=== PATIENT | male | born 1960 | race Caucasian/White ===

== ENCOUNTER 2018-04-29 07:10 | Day surgery (SDC) | payer OTHER ==
--- NOTE | 2018-04-25 12:20 | RAD REPORT ---
EXAM DESCRIPTION: RAD - Chest Pa And Lat (2 Views) - 04/25/2018 12:12 pm CLINICAL HISTORY: Preop chest, pending angiogram/ catheterization procedure. COMPARISON: July 2010 TECHNIQUE: PA and lateral views of the chest were obtained. FINDINGS: The lungs are underinflated. Lateral view shows posterior costophrenic angle blunting that was not present in 2011. Heart size is mildly enlarged. Upper lobe vasculature within normal limits. In the mid and lower lung morejon interstitial and patchy alveolar opacification is present. Patient apparently has no acute respiratory symptoms. Chest film findings have the appearance of a bi lateral pneumonia or early failure/ volume overload. No pneumothorax. No acute bony finding noted. N o aortic abnormality. Lung parenchymal findings do not have an appearance typical for malignant mass . IMPRESSION: Mid and lower lung morejon show interstitial and alveolar opacification not seen on 2010 comparison. Small bilateral pleural effusions are evident. Findings suggest CHF/volume overload or possibly pneumonia. Patient reports no acute respiratory symp toms.
[2018-04-25 12:29] LABS: Absolute Lymphocytes (CBC) 2.2 K/uL (0.7-4.9); Absolute Monocytes 0.8 K/uL (0.1-1.3); Absolute Neutrophil 9.5 K/uL (1.8-8.0); Basophils % 0.5 % (0-1.3); Eosinophils % 1.3 % (0-4.4); Hematocrit 38.7 % (39.6-49.0); Lymphocytes % 17.5 % (15.3-44.8); MCH 31.7 pg (27.0-35.0); MCV 91.1 fL (80-100); MPV 9.5 fL (7.6-11.3); Monocytes % 6.4 % (3.3-12.3); RBC Red Blood Cell Count 4.25 M/uL (4.33-5.43)
[2018-04-25 12:43] LABS: BUN Blood Urea Nitrogen 14 mg/dL (7-18); Bicarbonate 28 mmol/L (21-32); Glucose Level 109 mg/dL (74-106); Potassium 3.6 mmol/L (3.5-5.1); Sodium Level 139 mmol/L (136-145)
--- NOTE | 2018-04-26 12:29 | EKG ---
Test Date: 2018-04-25 Test Time: 12:03:02 Sander And Polisher: KAYLYN MEASUREMENT RESULTS: Intervals: Rate: 93 CA: QRSD: 80 QT: 368 QTc: 457 [place]: P: CA: QRS: 36 T: -11 INTERPRETIVE STATEMENTS: Atrial fibrillation with premature ventricular or aberrantly conducted complexes Abnormal ECG Compared to ECG 07/06/2010 12:39:41 Ventricular premature complex(es) now present Sinus rhythm no longer present Myocardial infarct finding no longer present Electronically Signed On 04-26-18 12:25:57 CDT by John Diaz
[2018-04-29] MEDS ORDERED: NA CHLORIDE 0.9% 500 ML ONE (07:56)
[2018-04-29] MEDS ORDERED: MIDAZOLAM HCL 2 MG/2 ML INJ ONE ×2 (09:22→09:40)
[2018-04-29] MEDS ORDERED: FENTANYL CITR 100 MCG/2 ML ONE (09:22)
[2018-04-29] MEDS ORDERED: HEPA 1000U/500MLS 1,000 UNIT/500 ML BAG IV ONE (09:22)
--- NOTE | 2018-04-29 20:59 | OP ---
Surgeon: John Diaz MD Web Services Architect: Karime Fuentes. He will be given a CD of the film for today. I will make an appointment for him to see in [place] in the near future. Admitted to my service as an outpatient for a selective bilateral carotid angiogram. He was brought into the photographic laboratory supervisor, prepped and draped in the routine sterile fashion. Procedure: Bilateral selective carotid angiogram. Indication: Cerebrovascular disease and abnormal carotid Doppler. Procedure In Detail: The patient had been cleared medically to do the procedure. He had a negative stress test. He was brought into the photographic laboratory supervisor, prepped and draped in the routine sterile fashion giv en 2 mg of Versed for IV sedation. Right common femoral artery access with a 6-Urdu sheath. Angio -Seal was used to close the case. A JR4 catheter diagnostic Sanjiv was used to do the carotid angio gram selectively. The right common carotid angiogram showed 70% of right ICA stenosis, 10 0% of right ECA stenosis, normal left ICA and ECA. A 6-Urdu catheters were used. There were no co mplications. Blood Loss: 5 cc. Postoperative Diagnosis: Plan: Plan is for right CEA. ANGELA/WALLY Voice ID: [id number] Report ID: [id number]
== END 2018-04-29 12:20 | disposition home health service (06) ==
LOC: CCL 07:10
PROC: B305ZZZ Plain Radiography of Bilateral Common Carotid Arteries (ICD-10-PCS; principal; 2018-04-29)
DX: I65.21 Occlusion and stenosis of right carotid artery (principal); I10 Essential (primary) hypertension; I48.91 Unspecified atrial fibrillation; E78.6 Lipoprotein deficiency; E11.9 Type 2 diabetes mellitus without complications; Z87.891 Personal history of nicotine dependence; Z82.49 Family history of ischemic heart disease and other diseases of the circulatory system
CPT/HCPCS: 36222; 36415; 71046; 80048; 82962; 85025; 85730; 93005; C1760; C1893; J2250; J3010

== ENCOUNTER 2018-08-01 10:00 | Day surgery (SDC) | payer OTHER ==
--- OUTSIDE RECORDS SUMMARY | 2018-08-01 10:34 | XMS REPORT | Clinical Summary ---
:1960 Author Organization [facility] Address [address] [place] [address] Care Team Providers Name Role Phone Darren Freire Unavailable Allergies No Known Allergies Medications Medication Sig Dispensed Refills Start Date End Date Status metFORMIN Take 750 mg by 0 Active (GLUCOPHAGE-XR) 750 mouth daily. MG 24 hr tablet atorvastatin Take 10 mg by 0 Active (LIPITOR) 10 MG mouth daily. tablet glimepiride Take 2 mg by 0 Active (AMARYL) 2 MG mouth daily. tablet multivit with Take by mouth 0 Active minerals/lutein daily . (MULTIVITAMIN 50 PLUS ORAL) nisoldipine (SULAR) Take 34 mg by 0 Active 34 MG 24 hr tablet mouth daily. metoprolol Take 100 mg by 6 04/18/2018 Active (TOPROL-XL) 100 MG mouth daily. 24 hr tablet cholecalciferol, Take by mouth 0 Active vitamin D3, 2,000 daily. unit Cap clopidogrel Take 1 tablet 30 tablet 0 05/15/2018 Active (PLAVIX) 75 mg (75 mg total) tablet by mouth daily. rivaroxaban Take 20 mg by 0 05/29/2018 Discontinued (XARELTO) 20 mg Tab mouth every tablet morning . Active Problems Problem Noted Date Carotid stenosis 05/12/2018 S/P carotid endarterectomy 05/12/2018 Anemia 05/12/2018 Acute postoperative pain 05/12/2018 Essential hypertension 05/12/2018 SIRS (systemic inflammatory response syndrome) 05/12/2018 Stroke Carotid artery occlusion Atrial fibrillation Encounters Date Type Specialty Care Team Description 05/29/2018 Office Visit Cardiology Dave Boyer [facility] state Bethanie MD (Primary Dx) 05/12/2018 Surgery Rosalind, Dave ENDARTERECTOMY,CAROTID MD Bethanie 05/12/2018 Anesthesia Event Gregor Robles MD 05/12/2018 - Hospital Encounter Cardiology Dave Boyer Atrial fibrillation, unspecified type (HCC) (Primary Dx); 05/14/2018 MD Bethanie Acute postoperative pain; Haylie Conway Chronic atrial fibrillation (HCC); MD Barbara Occlusion of right carotid artery; Essential hypertension; S/P carotid endarterectomy; SIRS (systemic inflammatory response syndrome) (HCC); History of stroke 05/05/2018 Hospital Encounter Dave Boyer MD 05/05/2018 Office Visit Cardiology Dave Boyer Stenosis of right carotid artery (Primary Dx); MD Bethanie Cerebrovascular accident (CVA), unspecified mechanism (HCC); Occlusion of right carotid artery; Atrial fibrillation, unspecified type (HCC) after 07/31/2017 Immunizations Name Dates Previously Given Next Due Influenza TIV (IM) 05/05/2018 Social History Tobacco Use Types Packs/Day Years Used Date Former Smoker 33 Quit: 2009 Smokeless Tobacco: Former User Chew Quit: 2009 Alcohol Use Drinks/Week oz/Week Comments Yes 4 Glasses of wine 2.4 4 Cans everyday Alcohol Habits Answer Date Recorded How often do you have a drink containing 4 or more times a week 05/05/2018 alcohol? How many drinks containing alcohol do you have Not asked on a typical day when you are drinking? How often do you have six or more drinks on one Not asked occasion? Sex Assigned at Date Recorded Not on file Job Start Date Occupation Industry Not on file Not on file Not on file Travel History Travel Start Travel End No recent travel history available. Last Filed Vital Signs Vital Sign Reading Time Taken Blood Pressure 152/69 05/29/2018 9:58 AM MUD CLEANER OPERATOR Pulse 64 05/29/2018 9:58 AM MUD CLEANER OPERATOR Temperature 36.3 C (97.4 F) 05/29/2018 9:58 AM MUD CLEANER OPERATOR Respiratory Rate 16 05/29/2018 9:58 AM MUD CLEANER OPERATOR Oxygen Saturation 96% 05/29/2018 9:58 AM MUD CLEANER OPERATOR Inhaled Oxygen Concentration - - Weight 102.1 kg (225 lb) 05/29/2018 9:58 AM MUD CLEANER OPERATOR Height 175.3 cm (5' 9") 05/29/2018 9:58 AM MUD CLEANER OPERATOR Body Mass Index 33.23 05/29/2018 9:58 AM MUD CLEANER OPERATOR Plan of Treatment Not on file Procedures Procedure Name Priority Date/Time Associated Comments Diagnosis RHYTHM STRIP - SCAN 05/15/2018 12:41 PM MUD CLEANER OPERATOR POCT-GLUCOSE METER Routine 05/14/2018 12:19 Results for this PM MUD CLEANER OPERATOR procedure are in the results section. POCT-GLUCOSE METER Routine 05/14/2018 8:19 Results for this AM MUD CLEANER OPERATOR procedure are in the results section. MAGNESIUM Routine 05/14/2018 4:02 Results for this AM MUD CLEANER OPERATOR procedure are in the results section. PT/APTT Routine 05/14/2018 4:02 Results for this AM MUD CLEANER OPERATOR procedure are in the results section. BASIC METABOLIC PANEL Routine 05/14/2018 4:02 Results for this (7) AM MUD CLEANER OPERATOR procedure are in the results section. CBC (HEMOGRAM ONLY) Routine 05/14/2018 4:02 Results for this AM MUD CLEANER OPERATOR procedure are in the results section. HEMOGLOBIN A1C Routine 05/13/2018 3:18 Results for this AM MUD CLEANER OPERATOR procedure are in the results section. MAGNESIUM Routine 05/13/2018 3:18 Results for this AM MUD CLEANER OPERATOR procedure are in the results section. PT/APTT Routine 05/13/2018 3:18 Results for this AM MUD CLEANER OPERATOR procedure are in the results section. BASIC METABOLIC PANEL Routine 05/13/2018 3:18 Results for this (7) AM MUD CLEANER OPERATOR procedure are in the results section. CBC (HEMOGRAM ONLY) Routine 05/13/2018 3:18 Results for this AM MUD CLEANER OPERATOR procedure are in the results section. POCT-GLUCOSE METER Routine 05/12/2018 3:50 Results for this PM MUD CLEANER OPERATOR procedure are in the results section. CBC W/PLT COUNT & Routine 05/12/2018 10:42 Results for this AUTO DIFFERENTIAL AM MUD CLEANER OPERATOR procedure are in the results section. MAGNESIUM Routine 05/12/2018 10:42 Results for this AM MUD CLEANER OPERATOR procedure are in the results section. BASIC METABOLIC PANEL Routine 05/12/2018 10:42 Results for this (7) AM MUD CLEANER OPERATOR procedure are in the results section. CBC W/PLT COUNT & Routine 05/12/2018 10:42 Results for this AUTO DIFFERENTIAL AM MUD CLEANER OPERATOR procedure are in the results section. BLOOD GAS, ARTERIAL STAT 05/12/2018 10:42 Results for this AM MUD CLEANER OPERATOR procedure are in the results section. CALCIUM, IONIZED Routine 05/12/2018 10:42 Results for this AM MUD CLEANER OPERATOR procedure are in the results section. TISSUE EXAM AP Routine 05/12/2018 9:25 Results for this AM MUD CLEANER OPERATOR procedure are in the results section. ENDARTERECTOMY,CAROTI 05/12/2018 8:00 Stenosis of right D AM MUD CLEANER OPERATOR carotid artery ECG 12-LEAD Routine 05/12/2018 7:25 Results for this AM MUD CLEANER OPERATOR procedure are in the results section. PLATELET AGGREGATION: AP Routine 05/12/2018 6:51 Results for this FUNCTION SCREEN AM MUD CLEANER OPERATOR procedure are in the results section. APTT Routine 05/12/2018 6:51 Results for this AM MUD CLEANER OPERATOR procedure are in the results section. PROTHROMBIN TIME/INR Routine 05/12/2018 6:51 Results for this AM MUD CLEANER OPERATOR procedure are in the results section. TRANSFUSION SERVICE 05/06/2018 6:02 REPORT - SCAN PM MUD CLEANER OPERATOR XR CHEST 2 VIEWS Routine 05/05/2018 1:50 Results for this PM MUD CLEANER OPERATOR procedure are in the results section. CBC W/PLT COUNT & Routine 05/05/2018 12:39 Results for this AUTO DIFFERENTIAL PM MUD CLEANER OPERATOR procedure are in the results section. TYPE AND SCREEN, Routine 05/05/2018 12:39 Results for this AUTOMATED PM MUD CLEANER OPERATOR procedure are in the results section. BASIC METABOLIC PANEL Routine 05/05/2018 12:39 Results for this (7) PM MUD CLEANER OPERATOR procedure are in the results section. CBC W/PLT COUNT & Routine 05/05/2018 12:39 Results for this AUTO DIFFERENTIAL PM MUD CLEANER OPERATOR procedure are in the results section. after 07/31/2017 Results RHYTHM STRIP - SCAN (05/15/2018 12:41 PM MUD CLEANER OPERATOR) Narrative Performed At POC-Glucose meter (05/14/2018 12:19 PM MUD CLEANER OPERATOR)Only the most recent of3 resultswithin the time period is included. POC-Glucose Meter 105Comment: TESTED AT 70 - 110 mg/dL [facility] [address] [facility] [address] Specimen Blood Performing Organization Address City/State/Zipcode Phone Number [address] [address] CENTER PT/aPTT (05/14/2018 4:02 AM MUD CLEANER OPERATOR)Only the most recent of2 resultswithin the time period is included. Protime 14.6 11.7 - 14.7 seconds [facility] INR 1.1 <=5.9 [facility] PTT 31.0 22.5 - 36.0 seconds [facility] Specimen Blood - Arm, Left Narrative Performed At RECOMMENDED COUMADIN/WARFARIN INR THERAPY [facility] RANGES STANDARD DOSE: 2.0 - 3.0 Includes: PROPHYLAXIS for venous thrombosis, systemic embolization; TREATMENT for venous thrombosis and/or pulmonary embolus. HIGH RISK: Target INR is 2.5-3.5 for patients with mechanical heart valves. Performing Organization Address [facility] Phone Number [facility] [address] [place] [address] CENTER CBC (Hemogram only) (05/14/2018 4:02 AM MUD CLEANER OPERATOR)Only the most recent of2 resultswithin the time period is included. WBC 13.7 (H) 3.5 - 10.5 K/L [facility] RBC 3.85 (L) 4.63 - 6.08 M/L [facility] Hemoglobin 11.4 (L) 13.7 - 17.5 GM/DL [facility] Hematocrit 36.1 (L) 40.1 - 51.0 % [facility] MCV 93.8 (H) 79.0 - 92.2 fL [facility] MCH 29.6 25.7 - 32.2 pg [facility] MCHC 31.6 (L) 32.3 - 36.5 GM/DL [facility] RDW 13.1 11.6 - 14.4 % [facility] Platelets 308 150 - 450 K/CU MM [facility] MPV 10.8 9.4 - 12.4 fL [facility] nRBC 0 0 - 0 /100 WBC [facility] Specimen Blood - Arm, Left Performing Organization Address City/State/Zipcode Phone Number [address] [address] [phone] CENTER Magnesium (05/14/2018 4:02 AM MUD CLEANER OPERATOR)Only the most recent of3 resultswithin the time period is included. Magnesium 2.0 1.6 - 2.6 mg/dL [facility] Specimen Blood - Arm, Left Performing Organization Address City/[facility] Phone Number [address] [address] [place] Basic Metabolic Panel (05/14/2018 4:02 AM MUD CLEANER OPERATOR)Only the most recent of4 resultswithin the time period is included. Sodium 140 136 - 145 meq/L [facility] Potassium 4.1 3.5 - 5.1 meq/L [facility] Chloride 106 98 - 107 meq/L [facility] CO2 29 22 - 29 meq/L [facility] BUN 14 7 - 21 mg/dL [facility] Creatinine 0.82 0.57 - 1.25 mg/dL [facility] Glucose 114 (H) 70 - 105 mg/dL [facility] Calcium 9.1 8.4 - 10.2 mg/dL [facility] EGFR 97Comment: ESTIMATED GFR IS mL/min/1.73 sq m [facility] NOT ACCURATE CREATININE [facility] CENTER CLEARANCE IN PREDICTING GLOMERULAR FILTRATION RATE. ESTIMATED GFR IS NOT APPLICABLE FOR DIALYSIS PATIENTS. Specimen Blood - Arm, Left Performing Organization Address [facility] Phone Number [address] [address] [place] Hemoglobin A1c (05/13/2018 3:18 AM MUD CLEANER OPERATOR) Hemoglobin A1C 5.6 4.3 - 6.1 % [facility] Specimen Blood Performing Organization Address City/State/Zipcode Phone Number [address] [place] [address] [phone] [place] Calcium, Ionized (05/12/2018 10:42 AM MUD CLEANER OPERATOR) Calcium, Ion 1.12 1.12 - 1.27 mmol/L [facility] pH, Blood 7.41 [facility] Specimen Blood Performing Organization Address City/State/Zipcode Phone Number [address] [address] [place] CBC with platelet count + automated diff (05/12/2018 10:42 AM MUD CLEANER OPERATOR)Only the most recent of2 resultswithin the time period is included. WBC 13.0 (H) 3.5 - 10.5 K/L [facility] RBC 4.06 (L) 4.63 - 6.08 M/L [facility] Hemoglobin 12.2 (L) 13.7 - 17.5 GM/DL [facility] Hematocrit 37.5 (L) 40.1 - 51.0 % [facility] MCV 92.4 (H) 79.0 - 92.2 fL [facility] MCH 30.0 25.7 - 32.2 pg [facility] MCHC 32.5 32.3 - 36.5 GM/DL [facility] RDW 12.7 11.6 - 14.4 % [facility] Platelets 389 150 - 450 K/CU MM [facility] MPV 10.4 9.4 - 12.4 fL [facility] nRBC 0 0 - 0 /100 WBC [facility] % Neutros 76 % [facility] % Lymphs 17 % [facility] % Monos 4 % [facility] % Eos 1 % [facility] % Baso 1 % [facility] # Neutros 9.86 (H) 1.78 - 5.38 K/L [facility] # Lymphs 2.14 1.32 - 3.57 K/L [facility] # Monos 0.55 0.30 - 0.82 K/L [facility] # Eos 0.13 0.04 - 0.54 K/L [facility] # Baso 0.09 (H) 0.01 - 0.08 K/L [facility] Immature Granulocytes-Relative 1 0 - 1 % [facility] Specimen Blood Performing Organization Address City/[facility]/Zipcode Phone Number [address] [address] [place] Blood gas, arterial (05/12/2018 10:42 AM MUD CLEANER OPERATOR) pH, Arterial 7.42 7.35 - 7.45 [facility] pCO2, Arterial 43 35 - 45 mmHg [facility] pO2, Arterial 132 (H) 80 - 90 mmHg [facility] O2 Sat, Arterial 98.7 (H) 96.0 - 97.0 % [facility] HCO3, Arterial 27 21 - 29 mmol/L [facility] Base Excess, Arterial 2.4 -2.0 - 3.0 mmol/L [facility] Patient Temperature 36.4 C [facility] FIO2 36.0 % [facility] Specimen Blood, Arterial Narrative Performed At Only if arterial line in place and/or patient [facility] on ventilator Performing Organization Address City/State/Zipcode Phone Number [address] [address] [place] Tissue Exam (05/12/2018 9:25 AM MUD CLEANER OPERATOR) Case Report Surgical Pathology Report Case: [id number] [facility] Authorizing Provider:Dave Boyer, Collected: 05/12/2018 0925 [facility] Ordering Location: [facility] Received: 05/12/2018 0976 [facility] Pathologist: Jhon Paige MD Specimen:Plaque, right carotid plaque DIAGNOSIS ARTERY, RIGHT CAROTID, ENDARTERECTOMY: [facility] CALCIFIC ATHEROSCLEROTIC PLAQUE WITH FOCAL EROSION AND NON-OCCLUSIVE FIBRIN THROMBOSIS [facility] Signing Pathologist Direct Phone Line: [phone] CPT Code(s) 95840; 55794 [facility] CLINICAL HISTORY Carotid stenosis [facility] SPECIMEN SOURCE Right carotid plaque [facility] GROSS DESCRIPTION The specimen is received in a [facility] fluidless container labeled [facility] with patient information and labeled "right carotid plaque" and consists of a calcified tubular shaped segment of tissue measuring 4 cm in length x 1 cm in diameter. Stamp Redemption Clerk sections are submitted A1 for decalcification. CG/pl MICROSCOPIC DESCRIPTION Performed [facility] Specimen Tissue - Plaque Performing Organization Address City/[facility]/Zipcode Phone Number [place] [phone] [place] [address] [place] Electrocardiogram, 12-lead (05/12/2018 7:25 AM MUD CLEANER OPERATOR) Narrative Performed At Ventricular Rate 97 BPM GE MUSE Atrial Rate 227 BPM QRS Duration 80 ms Q-T Interval 336 ms QTC Calculation(Bazett) 426 ms R [place] 27 degrees T [place] -6 degrees Atrial fibrillation Abnormal ECG No previous ECGs available Confirmed by MD Winter Mahboob ([id number]) on 05/12/2018 1:54:42 PM Procedure Note Interface, External Ris In - 05/12/2018 1:54 PM MUD CLEANER OPERATOR Ventricular Rate 97 BPM Atrial Rate 227 BPM QRS Duration 80 ms Q-T Interval 336 ms QTC Calculation(Bazett) 426 ms R [place] 27 degrees T [place] -6 degrees Atrial fibrillation Abnormal ECG No previous ECGs available Confirmed by MD Winter Mahboob ([id number]) on 05/12/2018 1:54:42 PM Performing Organization Address City/State/[facility] Phone Number [facility] Platelet Aggregation: Function Screen (05/12/2018 6:51 AM MUD CLEANER OPERATOR) Weak ADP 73 60 - 91 % [facility] Plt. Function Screen 60-100% indicates [facility] Interpretation normal platelet [facility] function Pathologist: Blanca Trevizo MD [facility] (electronic [facility] signature) Platelets 378 150 - 450 K/CU MM [facility] Specimen Blood Narrative Performed At Platelet Function Screen results may be [facility] falsely low with platelet counts <100,000/cu mm. Performing Organization Address [facility] Phone Number [address] [address] [phone] [place] aPTT (05/12/2018 6:51 AM MUD CLEANER OPERATOR) PTT 37.2 (H) 22.5 - 36.0 seconds [facility] Specimen Blood Performing Organization Address [facility] Phone Number [address] [address] [place] Prothrombin time/INR (05/12/2018 6:51 AM MUD CLEANER OPERATOR) Protime 14.7 11.7 - 14.7 seconds [facility] INR 1.1 <=5.9 [facility] Specimen Blood Narrative Performed At RECOMMENDED COUMADIN/WARFARIN INR THERAPY [facility] RANGES STANDARD DOSE: 2.0 - 3.0 Includes: PROPHYLAXIS for venous thrombosis, systemic embolization; TREATMENT for venous thrombosis and/or pulmonary embolus. HIGH RISK: Target INR is 2.5-3.5 for patients with mechanical heart valves. Performing Organization Address [facility]/Zipcode Phone Number [address] [address] [phone] [place] TRANSFUSION SERVICE REPORT - SCAN (05/06/2018 6:02 PM MUD CLEANER OPERATOR) Narrative Performed At XR chest 2 views (05/05/2018 1:50 PM MUD CLEANER OPERATOR) Narrative Performed At FINAL REPORT GE RIS PA and lateral chest HISTORY: Carotid endarterectomy. COMPARISON: None IMPRESSION: Intact skull. Mild cardiomegaly. Faint perihilar opacities suggestive of mild edema. Trace effusions versus pleural thickening. No pneumothorax. Signed: John Russ MD Report Verified Date/Time:05/05/2018 14:39:12 Reading Location: [facility] Reading Room Procedure Note Interface, External Ris In - 05/05/2018 2:41 PM MUD CLEANER OPERATOR FINAL REPORT PA and lateral chest HISTORY: Carotid endarterectomy. COMPARISON: None IMPRESSION: Intact skull. Mild cardiomegaly. Faint perihilar opacities suggestive of mild edema. Trace effusions versus pleural thickening. No pneumothorax. Signed: John Russ MD Report Verified Date/Time: 05/05/2018 14:39:12 Reading Location: [facility] Reading Room Performing Organization Address City/[facility]/Zipcode Phone Number GE RIS Type and screen, automated (05/05/2018 12:39 PM MUD CLEANER OPERATOR) ABO/RH AUTOMATED (BEAKER) O POSITIVE [facility] Ab Scrn NEGATIVE [facility] Specimen Blood - Arm, Right Performing Organization Address [facility]/State/Zipcode Phone Number [facility] [address] [place] [address] after 07/31/2017 Insurance Payer Benefit Plan / Group Subscriber ID Type Phone Address [employer] - [employer] OPEN ACCESS HMO NAP xxxxxxxxxx HMO/POS Advance Directives For more information, please contact:[place] [address] [place] [place] [phone] Code Status Date Activated Date Inactivated Comments Full Code 05/12/2018 5:40 AM 05/12/2018 10:31 AM This code status was determined by: Patient Full Code 05/12/2018 5:40 AM 05/12/2018 5:40 AM This code status was determined by: Patient
--- OUTSIDE RECORDS SUMMARY | 2018-08-01 10:35 | XMS REPORT ---
:1960 Author Organization [facility] Address [address] [place] [address] Care Team Providers Name Role Phone DAVE OBYER Unavailable Unavailable Problems This patient has no known problems. Allergies, Adverse Reactions, Alerts This patient has no known allergies or adverse reactions. Medications This patient has no known medications. Results Test Description Test Time Test Comments Text Results Atomic Results Result Comments TISSUE EXAM 2018-05-19 12:15:00 Surgical Pathology Report Case: [id number] Authorizing Provider: Dave Boyer, Collected: 05/12/2018 0925 Ordering Location: [facility] Received: 05/12/2018 0954 PERIOPERATIVE SERVICES Pathologist: Jhon Paige MD Specimen: Plaque, right carotid plaque ARTERY, RIGHT CAROTID, ENDARTERECTOMY:CALCIFIC ATHEROSCLEROTIC PLAQUE WITH FOCAL EROSION AND NON-OCCLUSIVE FIBRIN THROMBOSIS Signing Pathologist Direct Phone Line: [phone] signed by Jhon Paige MD on 05/19/2018 at 12:15 [id number]; [id number] stenosisRight carotid plaqueThe specimen is received in a fluidless container labeled with patient information and labeled "right carotid plaque" and consists of a calcified tubular shaped segment of tissue measuring 4 cm in length x 1 cm in diameter. [employer] Estimator sections are submitted A1 for decalcification. CG/pl Performed POCT-GLUCOSE METER 2018-05-14 12:24:00 Test Item Value Reference Range Comments POC-GLUCOSE METER (BEAKER) (test 105 mg/dL 70-110 TESTED AT [facility] [address] onhr=5174) [facility] [address] POCT-GLUCOSE [id number] 08:57:00 Test Item Value Reference Range Comments POC-GLUCOSE METER (BEAKER) 127 mg/dL 70-110 TESTED AT [facility] [address] (test tlrv=4677) [facility] [address] [id number] 04:41:00 Test Item Value Reference Range Comments MAGNESIUM (BEAKER) (test kcuq=740) 2.0 mg/dL 1.6-2.6 BASIC METABOLIC [id number] 04:41:00 Test Item Value Reference Range Comments SODIUM (BEAKER) (test 140 meq/L 136-145 oeaw=237) POTASSIUM (BEAKER) (test 4.1 meq/L 3.5-5.1 smbh=549) CHLORIDE (BEAKER) (test 106 meq/L 98-107 ojvu=649) CO2 (BEAKER) (test 29 meq/L 22-29 baih=228) BLOOD UREA NITROGEN 14 mg/dL 7-21 (BEAKER) (test jfur=441) CREATININE (BEAKER) (test 0.82 mg/dL 0.57-1.25 igkc=268) GLUCOSE RANDOM (BEAKER) 114 mg/dL 70-105 (test trap=914) CALCIUM (BEAKER) (test 9.1 mg/dL 8.4-10.2 zudc=034) EGFR (BEAKER) (test 97 mL/min/1.73 sq m ESTIMATED GFR IS NOT rmne=6476) ACCURATE CREATININE CLEARANCE IN PREDICTING GLOMERULAR FILTRATION RATE. ESTIMATED GFR IS NOT APPLICABLE FOR DIALYSIS PATIENTS. [id number] 04:37:00 Test Item Value Reference Range Comments PROTIME (BEAKER) (test plks=908) 14.6 seconds 11.7-14.7 INR (BEAKER) (test tixa=677) 1.1 <=5.9 PARTIAL THROMBOPLASTIN TIME (BEAKER) (test 31.0 seconds 22.5-36.0 gaik=469) RECOMMENDED COUMADIN/WARFARIN INR THERAPY RANGESSTANDARD DOSE: 2.0 - 3.0 Includes: PROPHYLAXIS forvenous thrombosis, systemic embolization; TREATMENT for venous thrombosis and/or pulmonary embolus.HIGH RISK: Target INR is 2.5-3.5 for patients with mechanical heart valves.CBC (HEMOGRAM ONLY)2018-05-14 04:24:00 Test Item Value Reference Range Comments WHITE BLOOD CELL COUNT (BEAKER) (test sfzu=608) 13.7 K/ L 3.5-10.5 RED BLOOD CELL COUNT (BEAKER) (test klsf=269) 3.85 M/ L 4.63-6.08 HEMOGLOBIN (BEAKER) (test cxnh=126) 11.4 GM/DL 13.7-17.5 HEMATOCRIT (BEAKER) (test zoji=982) 36.1 % 40.1-51.0 MEAN CORPUSCULAR VOLUME (BEAKER) (test krbg=338) 93.8 fL 79.0-92.2 MEAN CORPUSCULAR HEMOGLOBIN (BEAKER) (test 29.6 pg 25.7-32.2 insn=897) MEAN CORPUSCULAR HEMOGLOBIN CONC (BEAKER) (test 31.6 GM/DL 32.3-36.5 bziv=762) RED CELL DISTRIBUTION WIDTH (BEAKER) (test 13.1 % 11.6-14.4 bakq=542) PLATELET COUNT (BEAKER) (test ktda=992) 308 K/CU MM 150-450 MEAN PLATELET VOLUME (BEAKER) (test orwy=270) 10.8 fL 9.4-12.4 NUCLEATED RED BLOOD CELLS (BEAKER) (test 0 /100 WBC 0-0 mwdy=199) HEMOGLOBIN [id number] 15:02:00 Test Item Value Reference Range Comments HEMOGLOBIN A1C (BEAKER) (test szxa=239) 5.6 % 4.3-6.1 [id number] 03:49:00 Test Item Value Reference Range Comments PROTIME (BEAKER) (test yxow=183) 14.8 seconds 11.7-14.7 INR (BEAKER) (test btpk=381) 1.2 <=5.9 PARTIAL THROMBOPLASTIN TIME (BEAKER) (test 31.3 seconds 22.5-36.0 wvsp=101) RECOMMENDED COUMADIN/WARFARIN INR THERAPY RANGESSTANDARD DOSE: 2.0 - 3.0 Includes: PROPHYLAXIS forvenous thrombosis, systemic embolization; TREATMENT for venous thrombosis and/or pulmonary embolus.HIGH RISK: Target INR is 2.5-3.5 for patients with mechanical heart valves.[id number] 03:47:00 Test Item Value Reference Range Comments MAGNESIUM (BEAKER) (test fnbg=319) 2.2 mg/dL 1.6-2.6 BASIC METABOLIC [id number] 03:47:00 Test Item Value Reference Range Comments SODIUM (BEAKER) (test 139 meq/L 136-145 ljaz=184) POTASSIUM (BEAKER) (test 4.0 meq/L 3.5-5.1 jlsd=773) CHLORIDE (BEAKER) (test 105 meq/L 98-107 ziny=729) CO2 (BEAKER) (test 26 meq/L 22-29 xcio=581) BLOOD UREA NITROGEN 11 mg/dL 7-21 (BEAKER) (test kafq=970) CREATININE (BEAKER) (test 0.77 mg/dL 0.57-1.25 kghj=612) GLUCOSE RANDOM (BEAKER) 116 mg/dL 70-105 (test ahhh=841) CALCIUM (BEAKER) (test 9.0 mg/dL 8.4-10.2 nfbu=632) EGFR (BEAKER) (test 104 mL/min/1.73 sq m ESTIMATED GFR IS NOT xnag=2951) ACCURATE CREATININE CLEARANCE IN PREDICTING GLOMERULAR FILTRATION RATE. ESTIMATED GFR IS NOT APPLICABLE FOR DIALYSIS PATIENTS. CBC (HEMOGRAM ONLY)2018-05-13 03:39:00 Test Item Value Reference Range Comments WHITE BLOOD CELL COUNT (BEAKER) (test nsmu=158) 13.6 K/ L 3.5-10.5 RED BLOOD CELL COUNT (BEAKER) (test cosu=029) 4.11 M/ L 4.63-6.08 HEMOGLOBIN (BEAKER) (test xfdq=449) 12.2 GM/DL 13.7-17.5 HEMATOCRIT (BEAKER) (test bjhy=284) 38.4 % 40.1-51.0 MEAN CORPUSCULAR VOLUME (BEAKER) (test wxoe=751) 93.4 fL 79.0-92.2 MEAN CORPUSCULAR HEMOGLOBIN (BEAKER) (test 29.7 pg 25.7-32.2 swvm=277) MEAN CORPUSCULAR HEMOGLOBIN CONC (BEAKER) (test 31.8 GM/DL 32.3-36.5 kbpw=596) RED CELL DISTRIBUTION WIDTH (BEAKER) (test 12.9 % 11.6-14.4 hajc=850) PLATELET COUNT (BEAKER) (test kyxe=835) 382 K/CU MM 150-450 MEAN PLATELET VOLUME (BEAKER) (test hztb=033) 10.6 fL 9.4-12.4 NUCLEATED RED BLOOD CELLS (BEAKER) (test 0 /100 WBC 0-0 evsu=563) POCT-GLUCOSE [id number] 16:27:00 Test Item Value Reference Range Comments POC-GLUCOSE METER (BEAKER) 163 mg/dL 70-110 TESTED AT [facility] [address] (test wfwf=9840) [facility] [address] PLATELET AGGREGATION: FUNCTION [id number] 15:54:00 Test Item Value Reference Range Comments WEAK ADP RESULT(BEAKER) (test 73 % 60-91 nrqh=8482) PLATELET FUNCTION SCREEN 60-100% indicates normal INTERP (BEAKER) (test platelet function xhbi=7204) NENX-JUNVONCEPCW-3628 (BEAKER) Blanca Trevizo MD (electronic (test hjcc=1417) signature) PLATELET COUNT AGG (BEAKER) 378 K/CU MM 150-450 (test sqvd=6063) Platelet Function Screen results may be falsely low with platelet counts<100, 000/cu mm.[id number] 11:19:00 Test Item Value Reference Range Comments MAGNESIUM (BEAKER) (test jily=605) 1.8 mg/dL 1.6-2.6 BASIC METABOLIC [id number] 11:19:00 Test Item Value Reference Range Comments SODIUM (BEAKER) (test 141 meq/L 136-145 itim=673) POTASSIUM (BEAKER) (test 3.9 meq/L 3.5-5.1 kzfv=046) CHLORIDE (BEAKER) (test 107 meq/L 98-107 lphf=517) CO2 (BEAKER) (test 27 meq/L 22-29 eeke=677) BLOOD UREA NITROGEN 10 mg/dL 7-21 (BEAKER) (test dlvj=066) CREATININE (BEAKER) (test 0.80 mg/dL 0.57-1.25 ukes=322) GLUCOSE RANDOM (BEAKER) 159 mg/dL 70-105 (test fhfn=580) CALCIUM (BEAKER) (test 8.7 mg/dL 8.4-10.2 lyuv=509) EGFR (BEAKER) (test 100 mL/min/1.73 sq m ESTIMATED GFR IS NOT bhot=5922) ACCURATE CREATININE CLEARANCE IN PREDICTING GLOMERULAR FILTRATION RATE. ESTIMATED GFR IS NOT APPLICABLE FOR DIALYSIS PATIENTS. CBC W/PLT COUNT & AUTO [id number] 11:10:00 Test Item Value Reference Range Comments WHITE BLOOD CELL COUNT (BEAKER) (test fkqb=981) 13.0 K/ L 3.5-10.5 RED BLOOD CELL COUNT (BEAKER) (test hbzf=097) 4.06 M/ L 4.63-6.08 HEMOGLOBIN (BEAKER) (test fpvw=500) 12.2 GM/DL 13.7-17.5 HEMATOCRIT (BEAKER) (test alnb=349) 37.5 % 40.1-51.0 MEAN CORPUSCULAR VOLUME (BEAKER) (test jojx=585) 92.4 fL 79.0-92.2 MEAN CORPUSCULAR HEMOGLOBIN (BEAKER) (test 30.0 pg 25.7-32.2 fdqm=093) MEAN CORPUSCULAR HEMOGLOBIN CONC (BEAKER) (test 32.5 GM/DL 32.3-36.5 bvdn=782) RED CELL DISTRIBUTION WIDTH (BEAKER) (test 12.7 % 11.6-14.4 wezx=685) PLATELET COUNT (BEAKER) (test unkm=568) 389 K/CU MM 150-450 MEAN PLATELET VOLUME (BEAKER) (test ugco=155) 10.4 fL 9.4-12.4 NUCLEATED RED BLOOD CELLS (BEAKER) (test 0 /100 WBC 0-0 edji=165) NEUTROPHILS RELATIVE PERCENT (BEAKER) (test 76 % mmqw=746) LYMPHOCYTES RELATIVE PERCENT (BEAKER) (test 17 % ejrz=932) MONOCYTES RELATIVE PERCENT (BEAKER) (test 4 % xlrs=445) EOSINOPHILS RELATIVE PERCENT (BEAKER) (test 1 % ioeq=050) BASOPHILS RELATIVE PERCENT (BEAKER) (test 1 % acsc=213) NEUTROPHILS ABSOLUTE COUNT (BEAKER) (test 9.86 K/ L 1.78-5.38 szll=659) LYMPHOCYTES ABSOLUTE COUNT (BEAKER) (test 2.14 K/ L 1.32-3.57 xiye=488) MONOCYTES ABSOLUTE COUNT (BEAKER) (test 0.55 K/ L 0.30-0.82 ptmq=553) EOSINOPHILS ABSOLUTE COUNT (BEAKER) (test 0.13 K/ L 0.04-0.54 dpax=429) BASOPHILS ABSOLUTE COUNT (BEAKER) (test 0.09 K/ L 0.01-0.08 ljxg=331) IMMATURE GRANULOCYTES-RELATIVE PERCENT (BEAKER) 1 % 0-1 (test iofg=1574) CALCIUM, [id number] 11:01:00 Test Item Value Reference Range Comments CALCIUM IONIZED (BEAKER) (test byma=346) 1.12 mmol/L 1.12-1.27 PH, BLOOD (BEAKER) (test xazj=4703) 7.41 BLOOD GAS, [id number] 11:01:00 Test Item Value Reference Range Comments PH ARTERIAL (BEAKER) (test ttpk=867) 7.42 7.35-7.45 PCO2 ARTERIAL (BEAKER) (test dnxc=144) 43 mmHg 35-45 PO2 ARTERIAL (BEAKER) (test slfi=774) 132 mmHg 80-90 O2 SATURATION ARTERIAL (BEAKER) (test lhbq=151) 98.7 % 96.0-97.0 HCO3 ARTERIAL (BEAKER) (test vxaj=936) 27 mmol/L 21-29 BASE EXCESS ARTERIAL (BEAKER) (test hism=740) 2.4 mmol/L -2.0-3.0 PATIENT TEMPERATURE (BEAKER) (test yqqq=0505) 36.4 C FIO2 (BEAKER) (test zhiw=1641) 36.0 % Only if arterial line in place and/or patient on ventilatorPROTHROMBIN TIME/ [id number] 07:26:00 Test Item Value Reference Range Comments PROTIME (BEAKER) (test ivio=891) 14.7 seconds 11.7-14.7 INR (BEAKER) (test agdy=843) 1.1 <=5.9 RECOMMENDED COUMADIN/WARFARIN INR THERAPY RANGESSTANDARD DOSE: 2.0 - 3.0 Includes: PROPHYLAXIS forvenous thrombosis, systemic embolization; TREATMENT for venous thrombosis and/or pulmonary embolus.HIGH RISK: Target INR is 2.5-3.5 for patients with mechanical heart valves.[id number] 07:26:00 Test Item Value Reference Range Comments PARTIAL THROMBOPLASTIN TIME (BEAKER) (test 37.2 seconds 22.5-36.0 tdre=803) RAD, CHEST, 2 [id number] 14:39:00Reason for exam:->pre op cartoid endarterectomyFINAL REPORT PA and lateral chest HISTORY: Carotid endarterectomy. COMPARISON: None IMPRESSION:Intact skull. Mild cardiomegaly. Faint perihilar opacities suggestive of mild edema. Trace effusions versus pleural thickening. No pneumothorax. Signed: John Russ MDReport Verified Date/Time: 05/05/2018 14:39:12 Reading Location: [facility] Mammo Reading Room Electronically signed by: JOHN RUSS M.D. on 2017 02:39 PMBASI METABOLIC [id number] 13:14:00 Test Item Value Reference Range Comments SODIUM (BEAKER) (test 138 meq/L 136-145 dsxa=360) POTASSIUM (BEAKER) (test 4.1 meq/L 3.5-5.1 cqot=450) CHLORIDE (BEAKER) (test 102 meq/L 98-107 zyie=142) CO2 (BEAKER) (test 27 meq/L 22-29 hkrw=181) BLOOD UREA NITROGEN 14 mg/dL 7-21 (BEAKER) (test lwat=382) CREATININE (BEAKER) (test 1.13 mg/dL 0.57-1.25 heuv=369) GLUCOSE RANDOM (BEAKER) 92 mg/dL 70-105 (test xryl=939) CALCIUM (BEAKER) (test 9.4 mg/dL 8.4-10.2 mnhr=720) EGFR (BEAKER) (test 67 mL/min/1.73 sq m ESTIMATED GFR IS NOT qhwo=5681) ACCURATE CREATININE CLEARANCE IN PREDICTING GLOMERULAR FILTRATION RATE. ESTIMATED GFR IS NOT APPLICABLE FOR DIALYSIS PATIENTS. CBC W/PLT COUNT & AUTO [id number] 12:55:00 Test Item Value Reference Range Comments WHITE BLOOD CELL COUNT (BEAKER) (test mfjk=202) 14.2 K/ L 3.5-10.5 RED BLOOD CELL COUNT (BEAKER) (test rqoj=647) 4.35 M/ L 4.63-6.08 HEMOGLOBIN (BEAKER) (test dppb=002) 13.1 GM/DL 13.7-17.5 HEMATOCRIT (BEAKER) (test rdde=720) 40.0 % 40.1-51.0 MEAN CORPUSCULAR VOLUME (BEAKER) (test tiab=816) 92.0 fL 79.0-92.2 MEAN CORPUSCULAR HEMOGLOBIN (BEAKER) (test 30.1 pg 25.7-32.2 sbeu=063) MEAN CORPUSCULAR HEMOGLOBIN CONC (BEAKER) (test 32.8 GM/DL 32.3-36.5 hzmn=560) RED CELL DISTRIBUTION WIDTH (BEAKER) (test 12.7 % 11.6-14.4 vgrm=432) PLATELET COUNT (BEAKER) (test dfrl=922) 494 K/CU MM 150-450 MEAN PLATELET VOLUME (BEAKER) (test tntx=410) 10.0 fL 9.4-12.4 NUCLEATED RED BLOOD CELLS (BEAKER) (test 0 /100 WBC 0-0 hllg=743) NEUTROPHILS RELATIVE PERCENT (BEAKER) (test 74 % xxkl=790) LYMPHOCYTES RELATIVE PERCENT (BEAKER) (test 17 % ytwh=728) MONOCYTES RELATIVE PERCENT (BEAKER) (test 7 % abcl=545) EOSINOPHILS RELATIVE PERCENT (BEAKER) (test 1 % qztw=276) BASOPHILS RELATIVE PERCENT (BEAKER) (test 1 % xzkc=688) NEUTROPHILS ABSOLUTE COUNT (BEAKER) (test 10.50 K/ L 1.78-5.38 ycky=016) LYMPHOCYTES ABSOLUTE COUNT (BEAKER) (test 2.43 K/ L 1.32-3.57 iuvf=706) MONOCYTES ABSOLUTE COUNT (BEAKER) (test 0.96 K/ L 0.30-0.82 qnin=678) EOSINOPHILS ABSOLUTE COUNT (BEAKER) (test 0.15 K/ L 0.04-0.54 hlxi=152) BASOPHILS ABSOLUTE COUNT (BEAKER) (test 0.07 K/ L 0.01-0.08 awqn=343) IMMATURE GRANULOCYTES-RELATIVE PERCENT (BEAKER) 1 % 0-1 (test csgw=6316)
== END 2018-08-01 10:56 | disposition home or self-care (01) ==
LOC: DS 10:00
PROVIDERS: ATTEND Oral & Maxillofacial Surgery
DX: K02.9 Dental caries, unspecified (principal)
CPT/HCPCS: 96372

== ENCOUNTER 2019-04-17 09:40 | Day surgery (SDC) | payer OTHER ==
[2019-04-17] MEDS ORDERED: NA CHLORIDE 0.9% 1,000 ML ONE (09:58)
[2019-04-17 10:19] VITALS: BP 149/82; TEMP 98.4; O2SAT 95
--- NOTE | 2019-04-17 12:55 | EKG ---
Test Date: 2019-04-16 Test Time: 15:27:42 Billing Collections Specialist: MARYAM-T MEASUREMENT RESULTS: Intervals: Rate: 62 ME: 224 QRSD: 82 QT: 428 QTc: 434 [place]: P: 37 ME: 224 QRS: 76 T: 16 INTERPRETIVE STATEMENTS: Sinus rhythm with 1st degree AV block Possible Left atrial enlargement Borderline ECG Compared to ECG 04/25/2018 12:03:02 First degree AV block now present Atrial fibrillation no longer present Ventricular premature complex(es) no longer present Electronically Signed On 04-17-19 12:54:37 CDT by Steven Correa
--- NOTE | 2019-04-17 13:30 | P.PN ---
Date of Service: 04/17/19 Patient was scheduled for re-excision of scc left preauricular region with reconstruction. The patient's records from [facility] were expected yesterday but were not sent. Despite multiple attempts to obtain records, there were not available. I discussed options with patient including rescheduling vs proceeding and he opted to defer surgery until the records were available. We will plan to reschedule his surgery for Apr 24
== END 2019-04-17 12:26 | disposition home or self-care (01) ==
LOC: OR 09:40
PROVIDERS: ATTEND Otolaryngology
DX: C44.329 Squamous cell carcinoma of skin of other parts of face (principal); Z53.8 Procedure and treatment not carried out for other reasons
CPT/HCPCS: 93005; 36415; 82962; J7030

== ENCOUNTER 2019-04-24 09:26 | Day surgery (SDC) | payer OTHER ==
[2019-04-24] MEDS ORDERED: NA CHLORIDE 0.9% 1,000 ML ONE ×3 (09:43→16:51)
[2019-04-24] MEDS ORDERED: MINERAL OIL, LITE 10 ML VIAL ONE (10:05)
[2019-04-24] MEDS ORDERED: LIDOCAINE 1% W/EPI 1:100,000 MDV 20 ML VIAL ONE (10:06)
[2019-04-24] MEDS ORDERED: PROPOFOL 200 MG/20 ML VIAL IV ONE (11:37)
[2019-04-24] MEDS ORDERED: ROCURONIUM 50 MG/5 ML VIAL IV ONE (11:38)
[2019-04-24] MEDS ORDERED: LIDOCAINE 1% MPF 5 ML VIAL ONE (11:38)
[2019-04-24] MEDS ORDERED: MIDAZOLAM HCL 2 MG/2 ML INJ ONE (11:38)
[2019-04-24] MEDS ORDERED: FENTANYL CITR 100 MCG/2 ML ONE ×2 (11:38→12:37)
[2019-04-24] MEDS ORDERED: GLYCOPYRROLATE 0.2 MG/ML SYR ONE ×3 (13:22→14:38)
[2019-04-24] MEDS ORDERED: NEOSTIGMINE 1 MG/ML -10 ML VIAL ONE (14:38)
[2019-04-24] MEDS ORDERED: ONDANSETRON 4 MG/2 ML VIAL ONE (15:26)
[2019-04-24] MEDS ORDERED: TRAMADOL HCL 50 MG TAB ONE (16:00)
[2019-04-24 16:13] VITALS: TEMP 97.2
[2019-04-24 17:59] VITALS: BP 138/54; O2SAT 97
[2019-04-24] MEDS ORDERED: TAMSULOSIN 0.4 MG SR CAP PO ONE (19:00)
--- NOTE | 2019-04-25 03:09 | OP ---
Date of Procedure: 04/24/2019 Surgeon: Maya Cuenca MD Preoperative Diagnosis: 1. lesion of skin, uncertain behavior, left neck. and 2. Squamous cell carcinoma, left preauricular region Postoperative Diagnoses: 1. Left neck squamous cell carcinoma. 2. Surgical wound of left check and ear and 3. left preauricular squamous cell carcinoma. Procedure: 1. Excision of left neck squamous cell carcinoma, final diameter 2 cm 2. Surgical defect with intermediate layered closure 3. Excision with frozen section for margins of left preauricular squamous cell carcinoma, final defect 6.5 x 7 cm 4. Split-thickness skin graft from the left thigh to the left face with total surface area approximately 50 sq cm. Indication For Procedure: Mr. Marie presented with an ulcerated squamous cell carcinoma of the left preauricular region. He was later seen by a Dermatology/ Mohs surgeon and underwent 2-stage excision with persistent positive margins in the 10-5 o'clock aspect including encroachment onto the external auditory canal and was referred for further resection and wound closure. During evaluation, the patient was noted to have a suspicious appearing lesion of approximately 1- 1.5 cm on the upper portion of the left neck. After reviewing the risks, benefits, and alternatives to the procedure. The patient elected to proceed. Details of Procedure: The patient was brought to the operating room. He was placed under general anesthesia via oral endotracheal tube. The head was turned to the right for exposure of the left face and neck. The area surrounding the planned excision sites were injected with 0.5% Marcaine with epinephrine. The left thigh was prepped and draped in the standard sterile fashion with Betadine as was the face and neck. The patient was noted to have a pre-existing surgical defect of the preauricular left face/cheek. The size of the existing defect was approximately 5 cm. Th ewound bed showed significant granulation tissue with light overlying crusting. The portion of the wound adjacent to the root of the helix was designated as 12 o'clock in accordance with previous resection designations. The 6, 9, and 3 o'clock aspects were marked. The left neck lesion was noted and addressed with initial resection. A scalpel and Bovie electrocautery were used to excise full-thickness skin around the suspicious left upper neck lesion. A suture was placed at the superior most aspect indicating 12 o'clock and sent to pathology for frozen section analysis as specimen A. The frozen section confirmed squamous cell carcinoma with negative margins. The surrounding tissues were undermined using Bovie electrocautery. The 2cm circular defect was closed in a linear fashion without additional resection due to patient's overall skin condition and mild laxity. The deep tissues were approximated using 4-0 Vicryl sutures and the skin was closed in a running fashion using 5-0 plain gut suture. Attention was then turned to the left preauricular region. The Bovie was used to cut and coagulate new margins including approximately 4-5 mm thick margin extending from 3 to 6 o'clock with a suture placed at 6 o'clock. The specimen was sent to pathology for frozen section analysis and labeled as specimen B. Margin was excised in a similar fashion extending from 9 to 12 o'clock with a suture placed at 12 o'clock and specified as specimen C. The final margin extending from 12 to 3 o'clock was complex in geometry. The previous resection extended to the edge of the tragus and the tissue overlying the margin was significantly granulated due to the time lapse since original resection. In addition, along the superior aspect of the meatus and within the christen, there was some ulceration of skin and friability with clinical concern for tumor extending into this portion of the external ear. A 12 to 3 o'clock margin was cut that resection included portions of the cartilage of the helix as well as a small portion of the tragus. A circumferential incision at the meatus of the ear was required due to the complexity of this geometry. This specimen was marked with a suture at 12 o'clock, but brought to pathology for specific orientation and inking along with the pathologist. While awaiting frozen section, the deep margin including the thick granulation tissue as well as some fatty and fibrinous tissue was collected using Bovie electrocautery. The true margin was marked with marker. This specimen was sent for permanent section only. Due to the difficulty in cutting granulation and fat tissue without adjacent stabilizing skin tissue, there was concern that the quality of the slides would be significantly compromised and overall was not likely to affect the planned surgical resection in this case as additional deep margin would include parotidectomy, which was not discussed prior to the case. After review of the 9 to 12, 12 to 3, and 3 to 6 o'clock margins, there was a very limited nest of tissue around the 11 o'clock margin, but the true margin was negative and options for wound closure were carefully considered. Overall, the preauricular aspect of the defect was approximately 4 x 6 cm. In addition, there was a skin defect over the root of the helix and circumferentially around the meatus of the ear with concerns for stenosis of the medial portion of the external auditory canal. A 0.5 mm thick split-thickness skin graft was harvested using the dermatome from the patient's left thigh. The skin graft was lightly pie crusted using a scalpel and the specimen was used to cover the preauricular defect approximately 8 mm length of skin from the graft was trimmed from the inferior aspect. The skin graft was tacked in place using 3-0 silk sutures, leaving the ties long in order to apply the skin bolster. The trimmed portion of the skin graft was then placed along the posterior and superior aspect of the meatus and was secured using plain gut sutures. Plain gut suture was then used to sew the preauricular skin graft on circumferentially. A small 1 x 8-inch piece of Xeroform was rolled in a small cigar-like fashion and used to pack the external auditory canal with a goal of preventing stenosis. Additional Xeroform and gauze were applied as a bolster and secured with the long ends of the silk suture. The skin was cleaned and dried. The bolster was felt to be secure. The left thigh donor site was dressed with Xeroform, wrapped with gauze and an Flaco bandage. The patient was then returned to care of anesthesia for awakening and extubation in the operating room, which proceeded without difficulty. Complications: None. Specimens: A: Left upper neck suture at 12 o'clock. Frozen section confirms squamous cell carcinoma with negative margins. B: Left preauricular lesion at 3 to 6 o'clock margin, suture gautam 6 o'clock. Frozen section analysis, no tumor present, negative margin. C: 9 to 12 o'clock margin suture at 12 o'clock. Frozen section analysis, small nest of tumor around 11 o'clock with true margin negative. D: 12 to 3 o'clock margin suture at 12 o'clock. Frozen section analysis, no tumor present. E: New deep margin for permanent pathology pending true margin marked with ink. Disposition: The patient will be discharged home later today and follow up with Dr. Cuenca in approximately 10 days for evaluation of healing and removal of the bolster. NICOLAS/WALLY Voice ID: [id number] Report ID: [id number]
== END 2019-04-24 18:53 | disposition home or self-care (01) ==
LOC: OR 09:26
PROVIDERS: ATTEND Otolaryngology
PROC: 0HR1X74 Replacement of Face Skin with Autologous Tissue Substitute, Partial Thickness, External Approach (ICD-10-PCS; 2019-04-24)
PROC: 0HQ4XZZ Repair Neck Skin, External Approach (ICD-10-PCS; principal; 2019-04-24 10:30)
PROC: 0HB4XZZ Excision of Neck Skin, External Approach (ICD-10-PCS; 2019-04-24 10:30)
DX: C44.42 Squamous cell carcinoma of skin of scalp and neck (principal); C44.329 Squamous cell carcinoma of skin of other parts of face; E11.9 Type 2 diabetes mellitus without complications; I10 Essential (primary) hypertension; I48.91 Unspecified atrial fibrillation; M19.90 Unspecified osteoarthritis, unspecified site; Z87.891 Personal history of nicotine dependence
CPT/HCPCS: 82947 ×2; 88331; 88332; 88305 ×2; 11622; 12041; 11646; 15120; J2704; J2710; J2250; J3010 ×2; J7030 ×3; J2405

== ENCOUNTER 2024-09-02 02:58 | Emergency (ER) | payer BC, OTHER ==
[2024-09-02] MEDS ORDERED: ETOMIDATE 20 MG/10 ML VIAL IV ONE (02:59)
[2024-09-02] MEDS ORDERED: LIDOCAINE 2% W/EPI 1:200,000 MPF 20 ML VIAL IM ONE (03:08)
--- NOTE | 2024-09-02 03:56 | EDPHYS ---
Physician Documentation [facility] Name: Sixto Marie Age: 64 yrs Sex: Male : 1960 Arrival Date: 09/02/2024 Time: 02:58 Bed 4 Private MD: ED Physician Ronni Byrd HPI: 09/02 03:40 This 64 yrs old Male presents to ER via Wheelchair with complaints of sp4 Bleeding from neck incision . 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 Patient states he takes Plavix 75 mg daily. Patient is presenting with private vehicle. Patient states at some point in the night his incision came apart causing significant bleeding. . Historical: - Allergies: 03:13 Diltiazem; bm8 - Home Meds: 03:13 Unable to obtain [Active]; bm8 - PMHx: 03:13 skin cancer; bm8 - PSHx: 03:13 skin tumors removed; skin graft; bm8 - Immunization history:: Adult Immunizations up to date. - Infectious Disease History:: Denies. - Social history:: Smoking status: Patient denies any tobacco usage or history of. - Family history:: not pertinent. ROS: 03:42 Constitutional: Negative for fever, chills, and weight loss, positive for postoperative sp4 incision dehiscence on the neck with active bleeding from incision 03:42 All other systems are negative, Exam: 03:42 Constitutional: This is a well developed, well nourished patient who is awake, sp4 ill-appearing pale individual presents with active bleeding from the left side of the neck. Bleeding appears to be from postoperative incision. Appears to be small arteriolar bleeding. Head/Face: Normocephalic, atraumatic. Moderate swelling of postoperative site with significant skin incision dehiscence and bleeding from a small arteriole, left anterior neck incision. Patient essentially covered in blood from moderate blood loss. Eyes: Pupils equal round and reactive to light, extra-ocular motions intact. Lids and lashes normal. Conjunctiva and sclera are not injected. Cornea within normal limits. Periorbital areas with no swelling, redness, or edema. ENT: Nares patent. No nasal discharge, no septal abnormalities noted. Tympanic membranes are normal and external auditory canals are clear. Oropharynx with no redness, swelling, or masses, exudates, or evidence of obstruction, uvula midline. Mucous membranes moist. Neck: Trachea midline, airways patent, there is moderate swelling, postoperative incision dehiscence active bleeding from postoperative incision appears to be small arterial bleed. SNEHAL drain X 2 left lower neck. Chest/axilla: Normal chest wall appearance and motion. Nontender with no deformity. No lesions are appreciated. Cardiovascular: Regular rate and rhythm with a normal S1 and S2. No gallops, murmurs, or rubs. Normal PMI, no JVD. No pulse deficits. Respiratory: Lungs have equal breath sounds bilaterally, clear to auscultation and percussion. No rales, rhonchi or wheezes noted. No increased work of breathing, no retractions or nasal flaring. Abdomen/GI: Soft, with normal bowel sounds. No distension or tympany. No guarding or rebound. No evidence of tenderness throughout. Back: No spinal tenderness. No costovertebral tenderness. Skin: Warm, dry with normal turgor. Normal color with no rashes, no lesions, and no evidence of cellulitis. MS/ Extremity: Pulses equal, no cyanosis. Neurovascular intact. Full, normal range of motion. Neuro: Awake and alert, GCS 15, oriented to person, place, time, and situation. Cranial nerves II-XII grossly intact. Motor strength 5/5 in all extremities. Sensory grossly intact. Psych: Awake, alert, with orientation to person, place and time. Behavior, mood, and affect are within normal limits Vital Signs: 03:12 BP 115 / 86; Pulse 95; Resp 18; Temp 97.1; Pulse Ox 99% ; Weight 90.72 kg; Height 5 ft. bm8 8 in. ; Pain 0/10; 04:00 BP 144 / 68; Pulse 61; Resp 14; Temp 97.1; Pulse Ox 93% on R/A; Pain 0/10; bm8 04:30 BP 130 / 66; Pulse 61; Resp 14; Temp 97.1; Pulse Ox 93% ; Pain 0/10; bm8 05:00 BP 122 / 68; Pulse 61; Resp 18; Temp 97.1; Pulse Ox 98% on ETT vent; FiO2 100 %; Pain bm8 0/10; 05:13 BP 158 / 99; Pulse 104; Resp 18; Temp 97.1; Pulse Ox 100% on ETT vent; FiO2 100 %; Pain bm8 0/10; 05:45 BP 130 / 71; Pulse 57; Resp 18; Temp 97.1; Pulse Ox 98% ; Pain 0/10; bm8 03:12 Body Mass Index 30.41 (90.72 kg, 172.72 cm) bm8 03:12 Pain Scale: Adult bm8 04:00 Pain Scale: Adult bm8 04:30 Pain Scale: Adult bm8 05:00 Pain Scale: Adult bm8 05:13 Pain Scale: Adult bm8 05:45 Pain Scale: Adult bm8 Zahraa Coma Score: 03:42 Eye Response: spontaneous(4). Motor Response: obeys commands(6). Verbal Response: sp4 oriented(5). Total: 15. 03:52 Eye Response: spontaneous(4). Motor Response: obeys commands(6). Verbal Response: bm8 oriented(5). Total: 15. 04:00 Eye Response: spontaneous(4). Motor Response: obeys commands(6). Verbal Response: bm8 oriented(5). Total: 15. 04:30 Eye Response: none(1). Modifying Factors: Intubated. Motor Response: none(1). Verbal bm8 Response: none(1). Total: 3. 05:13 Eye Response: none(1). Modifying Factors: Intubated. Motor Response: none(1). Verbal bm8 Response: none(1). Total: 3. 05:45 Eye Response: none(1). Modifying Factors: Intubated. Motor Response: none(1). Verbal bm8 Response: none(1). Total: 3. Procedures: 03:52 Performed Bleeding was controlled after postoperative incision was ligated with silk sp4 sutures. Bleeding from small artery was stopped by pulling skin edges together . 05:29 Intubation: Ventilated with 100% NRB prior to procedure. O2 saturation prior to sp4 procedure was 96 %. Intubated Hitchins scope assisted intubation using S4 Hitchins scope blade with 7.5 mm ETT. was successful on first attempt. Ventilated with Ambu bag. ventilator. Tube secured with ETT lozano at center of mouth measured 23 cm at lip. Placement verified by CXR, O2 saturation after procedure was 100 %. Patient tolerated well, Intubated for airway protection . Central Line: the site was prepped with Betadine, in sterile fashion, a triple lumen catheter was inserted, in the right femoral vein, in 1 attempts. placement was verified, by blood return, the site was dressed with 4X4s, Tegaderm, using sterile technique, the patient tolerated the procedure, well, CVL placed emergently for resuscitation. Laceration: 03:52 Wound Repair of 6cm ( 2.4in ) Postoperative incision dehiscence and active bleeding sp4 from postoperative incision left anterior neck laceration to neck. Profuse bleeding noted.. Distal neuro/vascular/tendon intact. Anesthesia: Wound infiltrated with 20 mls of 1% lidocaine w/ Epi. Wound prep: Moderate cleansing by me, Copious irrigation. Skin closed with 6 3-0 Silk using vertical mattress sutures and sterile technique. Dressed with 4x4's. Patient tolerated well. MDM: 03:50 Differential diagnosis: Postoperative incisional bleeding, postoperative wound sp4 dehiscence, postoperative swelling, postoperative complications. 03:51 Data reviewed: vital signs, nurses notes, old medical records, lab test result(s). sp4 Consideration of Admission/Observation Escalation of care including admission/observation considered. ED course: Patient warrants transfer to [facility] for evaluation by surgeon for postoperative wound dehiscence and significant bleeding. 03:55 Medical Screening Exam initiated sp4 09/02 03:41 Order name: CBC with Diff; Complete Time: 04:32 sp4 09/02 03:41 Order name: CMP; Complete Time: 04:32 sp4 09/02 03:41 Order name: Type And Screen sp4 09/02 03:41 Order name: PT-INR; Complete Time: 04:32 sp4 09/02 04:12 Order name: Packed RBC Leukored EDMS 09/02 04:12 Order name: RBC Leukoreduced (Pheresis 2) EDMS 09/02 05:59 Order name: ABO/RH no charge EDMS 09/02 05:46 Order name: Chest Single View EDMS 09/02 03:41 Order name: IV Saline Lock; Complete Time: 03:55 sp4 09/02 03:41 Order name: Labs collected and sent; Complete Time: 03:55 sp4 09/02 04:28 Order name: Intubation Setup; Complete Time: 06:30 sp4 09/02 04:28 Order name: Central Line Dressing Kit; Complete Time: 06:30 sp4 09/02 04:28 Order name: Central Line Kit; Complete Time: 06:30 sp4 09/02 04:28 Order name: Chlorhexidine prep; Complete Time: 06:30 sp4 09/02 04:28 Order name: Consent for central line completed; Complete Time: 06:30 sp4 09/02 04:28 Order name: Line Caps x3; Complete Time: 06:30 sp4 09/02 04:28 Order name: NS Flushes x3; Complete Time: 06:30 sp4 09/02 04:28 Order name: Sterile Gloves; Complete Time: 06:30 sp4 09/02 04:28 Order name: Sterile Probe Cover; Complete Time: 06:30 sp4 09/02 05:03 Order name: Schwarz; Complete Time: 05:14 sp4 09/02 05:03 Order name: C-Collar; Complete Time: 06:30 sp4 Administered Medications: 03:40 Drug: ceFAZolin IVPB 2 grams IVPB once over 30 mins; (mix in 100 mL NS) Route: IVPB; bm8 Infused Over: 30 mins; Site: Port-a-cath; 06:20 Follow up: Response: No adverse reaction; IV Status: Completed infusion bm8 04:19 Drug: Etomidate IVP 20 mg IVP once Route: IVP; Site: Port-a-cath; bm8 06:19 Follow up: Response: No adverse reaction bm8 04:20 Drug: Rocuronium IVP 100 mg IVP once Route: IVP; Site: Port-a-cath; bm8 06:19 Follow up: Response: No adverse reaction bm8 04:25 Drug: Midazolam IVP or IV 0.01 mg/kg/h IV at calculated rate See Administration bm8 Instructions; (Standard concentration: 100 mg / 100 mL NS); Recommended max rate 0.1 mg/kg/hr; Titrate 0.01 mg/kg/hr as often as every 30 minutes to achieve goal (see titration policy); Goal parameter RASS 0 to -2 Route: IV; Rate: 5 mg/hr; Site: Port-a-cath; 06:19 Follow up: Response: No adverse reaction; IV Status: Infusion continued upon transfer bm8 05:00 Drug: Albumin IVPB 25 grams 100 ml IVPB once; (Note: Albumin 25% concentration) Volume: bm8 100 ml; Route: IVPB; Site: right femoral; 06:20 Follow up: Response: No adverse reaction; IV Status: Completed infusion bm8 05:45 Drug: fentaNYL (PF) IVP 25 mcg IVP once Route: IVP; Site: right antecubital; bm8 06:20 Follow up: Response: No adverse reaction bm8 05:45 Drug: Ondansetron IVP 8 mg IVP once; over 2 minutes Route: IVP; Site: right antecubital;bm8 06:20 Follow up: Response: No adverse reaction bm8 Disposition Summary: 09/02/24 03:55 Transfer Ordered Notes: Transfer Location: Other Acute Care Facility sp4 Reason: Higher level of care sp4 Condition: Serious sp4 Problem: new sp4 Symptoms: have improved sp4 Accepting Physician: [facility] , requested transfer for higher level (09/02/24 06:29) bm8 Diagnosis - Acute arterial bleeding from postoperative incision left anterior neck, acute sp4 dehiscence postoperative incision left anterior neck, acute bleeding SNEHAL Drain site left lower neck Forms: - Medication Reconciliation Form sp4 - SBAR form sp4 Critical care time excluding procedures: 05:29 Critical care time: Bedside Care: 36 minutes, Consultation: 12 minutes, Family sp4 Intervention: 12 minutes. Total time: 60 minutes Signatures: Dispatcher [employer] Ronni Kerr MD MD sp4 [facility], RN RN bm8 Corrections: (The following items were deleted from the chart) 05:02 04:29 PACKED RBC LEUKORED+BB.LAB.BRZ ordered. EDMS EDMS 05:02 04:31 ABO/RH typing ordered. EDMS EDMS 05:02 04:31 Antibody Screen ordered. EDMS EDMS 06:29 03:55 [facility] , requested transfer for higher level sp4 bm8
--- NOTE | 2024-09-02 03:56 | ER ---
Nurse's Notes [facility] Name: Sixto Marie Age: 64 yrs Sex: Male : 1960 Arrival Date: 09/02/2024 Time: 02:58 Bed 4 Private MD: Diagnosis: Acute arterial bleeding from postoperative incision left anterior neck, acute dehiscence postoperative incision left anterior neck, acute bleeding SNEHAL Drain site left lower neck Presentation: 09/02 03:12 Chief complaint: Patient states: I was asleep and i think I pulled some of my stitches bm8 out from sx. Coronavirus screen: At this time, the client does not indicate any symptoms associated with coronavirus-19. Ebola Screen: Patient negative for fever greater than or equal to 101.5 degrees Fahrenheit, and additional compatible Ebola Virus Disease symptoms Patient denies exposure to infectious person. Patient denies travel to an Ebola-affected area in the 21 days before illness onset. No symptoms or risks identified at this time. Initial Sepsis Screen: Does the patient meet any 2 criteria? No. Patient's initial sepsis screen is negative. Does the patient have a suspected source of infection? No. Patient's initial sepsis screen is negative. Risk Assessment: Do you want to hurt yourself or someone else? Patient reports no desire to harm self or others. Onset of symptoms was September 02, 2024 at 02:00. 03:12 Method Of Arrival: Wheelchair bm8 03:12 Acuity: JAYSON 2 bm8 Triage Assessment: 03:13 General: Appears in no apparent distress. comfortable, Behavior is calm, cooperative, bm8 appropriate for age. Pain: Denies pain. EENT: No deficits noted. No signs and/or symptoms were reported regarding the EENT system. Neuro: No deficits noted. Level of Consciousness is awake, alert, obeys commands, Oriented to person, place, time, situation, Appropriate for age. Cardiovascular: Denies chest pain, shortness of breath. Respiratory: Airway is patent Respiratory effort is even, unlabored, Respiratory pattern is regular, symmetrical, Breath sounds are clear. Derm: Wound noted left ear and left jaw Wound is Surgical site from last Saturday, open and oozing arterial blood. Reports. Historical: - Allergies: 03:13 Diltiazem; bm8 - Home Meds: 03:13 Unable to obtain [Active]; bm8 - PMHx: 03:13 skin cancer; bm8 - PSHx: 03:13 skin tumors removed; skin graft; bm8 - Immunization history:: Adult Immunizations up to date. - Infectious Disease History:: Denies. - Social history:: Smoking status: Patient denies any tobacco usage or history of. - Family history:: not pertinent. Screenin:52 [facility] ED Fall Risk Assessment (Adult) History of falling in the last 3 months, bm8 including since admission Yes- physiologic fall (2 pts) Confusion or Disorientation No (0 pts) Intoxicated or Sedated Yes (3 pts) Impaired Gait No (0 pts) Mobility Assist Device Used No (0 pt) Altered Elimination No (0 pt) Score/Fall Risk Level 3 or more points = High Risk Oriented to surroundings, Maintained a safe environment, Educated pt \T\ family on fall prevention, incl call for assistance when getting out of bed, Assessed \T\ reinforced patient's understanding of fall precautions, Hourly rounding (assess needs \T\ fall precautionary measures) done, Used ambulatory aids as needed (educated on \T\ assisted with), Used gait belt as appropriate Implemented a Fall Risk Plan of Care. Abuse screen: Denies threats or abuse. Nutritional screening: No deficits noted. Tuberculosis screening: No symptoms or risk factors identified. Assessment: 03:52 Reassessment: Patient appears in no apparent distress at this time. Patient and/or bm8 family updated on plan of care and expected duration. Pain level reassessed. Patient is alert, oriented x 3, equal unlabored respirations, skin warm/dry/pink. pt was sutured by provider bleeding has stopped. pt denies pain Patient states feeling better. Patient states symptoms have improved. 04:00 Reassessment: Went in to reevaluate sutures and saw them profusely leaking. A re- bm8 attempt to close the arterial bleeding was made unsuccessfully. decision made to intubate based on swelling in skin graft. 04:30 Reassessment: pt intubated and provider working to insert right femoral central line bm8 triple lumen. 05:00 Reassessment: Patient appears in no apparent distress at this time. Patient and/or bm8 family updated on plan of care and expected duration. Pain level reassessed. Patient is alert, oriented x 3, equal unlabored respirations, skin warm/dry/pink. 05:45 Reassessment: Report to radha Gunn. bm8 Vital Signs: 03:12 BP 115 / 86; Pulse 95; Resp 18; Temp 97.1; Pulse Ox 99% ; Weight 90.72 kg; Height 5 ft. bm8 8 in. ; Pain 0/10; 04:00 BP 144 / 68; Pulse 61; Resp 14; Temp 97.1; Pulse Ox 93% on R/A; Pain 0/10; bm8 04:30 BP 130 / 66; Pulse 61; Resp 14; Temp 97.1; Pulse Ox 93% ; Pain 0/10; bm8 05:00 BP 122 / 68; Pulse 61; Resp 18; Temp 97.1; Pulse Ox 98% on ETT vent; FiO2 100 %; Pain bm8 0/10; 05:13 BP 158 / 99; Pulse 104; Resp 18; Temp 97.1; Pulse Ox 100% on ETT vent; FiO2 100 %; Pain bm8 0/10; 05:45 BP 130 / 71; Pulse 57; Resp 18; Temp 97.1; Pulse Ox 98% ; Pain 0/10; bm8 03:12 Body Mass Index 30.41 (90.72 kg, 172.72 cm) bm8 03:12 Pain Scale: Adult bm8 04:00 Pain Scale: Adult bm8 04:30 Pain Scale: Adult bm8 05:00 Pain Scale: Adult bm8 05:13 Pain Scale: Adult bm8 05:45 Pain Scale: Adult bm8 Zahraa Coma Score: 03:42 Eye Response: spontaneous(4). Motor Response: obeys commands(6). Verbal Response: sp4 oriented(5). Total: 15. 03:52 Eye Response: spontaneous(4). Motor Response: obeys commands(6). Verbal Response: bm8 oriented(5). Total: 15. 04:00 Eye Response: spontaneous(4). Motor Response: obeys commands(6). Verbal Response: bm8 oriented(5). Total: 15. 04:30 Eye Response: none(1). Modifying Factors: Intubated. Motor Response: none(1). Verbal bm8 Response: none(1). Total: 3. 05:13 Eye Response: none(1). Modifying Factors: Intubated. Motor Response: none(1). Verbal bm8 Response: none(1). Total: 3. 05:45 Eye Response: none(1). Modifying Factors: Intubated. Motor Response: none(1). Verbal bm8 Response: none(1). Total: 3. ED Course: 03:07 Patient arrived in ED. rv1 03:11 [facility], RN is Primary Nurse. bm8 03:13 Triage completed. bm8 03:13 Arm band placed on right wrist. bm8 03:30 Accessed Port-a-Cath. using accessed w/ # 20 Ratliff needle, Clean \T\ dry. Dressing jb4 intact. Good blood return. Flushes easily. 03:30 Assist provider with laceration repair on face and left jaw and left ear that was bm8 between 12.6 to 20 cm using sutures. Set up tray. Performed by Ronni Byrd MD Dressed with 4X4s, Patient tolerated well. 03:40 Ronni Byrd MD is Attending Physician. sp4 03:50 initiated transfer with [facility]. kmf 03:52 Patient has correct armband on for positive identification. Bed in low position. Call bm8 light in reach. Side rails up X 1. Client placed on continuous cardiac and pulse oximetry monitoring. NIBP monitoring applied. Pulse ox on. NIBP on. Door closed. Noise minimized. Visitors limited. 03:55 CBC with Diff Sent. vk 03:55 CMP Sent. vk 03:55 PT-INR Sent. vk 03:55 Type And Screen Sent. vk 03:55 Initial lab(s) drawn, by wa, sent to lab. T\T\S collected, blood band applied to patient. vk 04:19 Assisted provider with intubation using 7.5 mm ETT via oral route. ET tube secured at bm8 22cm at the lips. Set up intubation tray. Intubated by Ronni Byrd MD Placement verified by CO2 detector w/ + color change, auscultating bilateral breath sounds, CXR, Patient tolerated well. 04:30 Inserted saline lock: 20 gauge in right antecubital area, using aseptic technique. bm8 ,using aseptic technique. ultrasound guided Blood collected. Flushed with 10 mL NS. 04:54 pt was accepted to [facility] - Dr. Mtz accepted \T\ 0454. Accepting Admin kmf Dr. Neely \T\[id number]. Pt will go to ICU G740. Number for nurse to nurse report [phone]. [facility] to transfer pt . 05:13 Schwarz cath inserted, using sterile technique, 18 Fr., by wa, balloon inflated, to vk gravity drainage. 05:45 Provided Education on: need fro transfer. bm8 05:45 Patient transferred, IV remains in place. all IV access remain in place for transfer. bm8 05:49 Chest Single View In Process Unspecified. EDMS Administered Medications: 03:40 Drug: ceFAZolin IVPB 2 grams IVPB once over 30 mins; (mix in 100 mL NS) Route: IVPB; bm8 Infused Over: 30 mins; Site: Port-a-cath; 06:20 Follow up: Response: No adverse reaction; IV Status: Completed infusion bm8 04:19 Drug: Etomidate IVP 20 mg IVP once Route: IVP; Site: Port-a-cath; bm8 06:19 Follow up: Response: No adverse reaction bm8 04:20 Drug: Rocuronium IVP 100 mg IVP once Route: IVP; Site: Port-a-cath; bm8 06:19 Follow up: Response: No adverse reaction bm8 04:25 Drug: Midazolam IVP or IV 0.01 mg/kg/h IV at calculated rate See Administration bm8 Instructions; (Standard concentration: 100 mg / 100 mL NS); Recommended max rate 0.1 mg/kg/hr; Titrate 0.01 mg/kg/hr as often as every 30 minutes to achieve goal (see titration policy); Goal parameter RASS 0 to -2 Route: IV; Rate: 5 mg/hr; Site: Port-a-cath; 06:19 Follow up: Response: No adverse reaction; IV Status: Infusion continued upon transfer bm8 05:00 Drug: Albumin IVPB 25 grams 100 ml IVPB once; (Note: Albumin 25% concentration) Volume: bm8 100 ml; Route: IVPB; Site: right femoral; 06:20 Follow up: Response: No adverse reaction; IV Status: Completed infusion bm8 05:45 Drug: fentaNYL (PF) IVP 25 mcg IVP once Route: IVP; Site: right antecubital; bm8 06:20 Follow up: Response: No adverse reaction bm8 05:45 Drug: Ondansetron IVP 8 mg IVP once; over 2 minutes Route: IVP; Site: right antecubital;bm8 06:20 Follow up: Response: No adverse reaction bm8 Medication: 03:52 VIS not applicable for this client. bm8 04:45 Blood products: PRBCs X 2 units given. uncrossed O- blood emergency transfused. 2 nurse bm8 check off done by this nurse and RADHA Mao prior to the start of each bag. Outcome: 03:55 ER care complete, transfer ordered by MD. schulz 05:45 Transferred by ground EMS to [facility], Transfer form completed. X-rays sent bm8 w/ patient. 05:45 critical 05:45 Instructed on the need for transfer, Demonstrated understanding of instructions, follow-up care, medications, 06:29 Patient left the ED. bm8 Signatures: Dispatcher [employer] EDMS Darren Felix, RN RN Rebeka Ross rv1 Ronni Byrd MD MD spPatsy Brand [facility] Melinda Isaac Brad, RN RN bm8 Corrections: (The following items were deleted from the chart) 03:55 03:52 No provider procedures requiring assistance completed. bm8 bm8 03:55 03:52 Oxygen administration via nasal cannula \T\ 3L/min bm8 bm8 06:12 06:11 Etomidate IVP 20 mg IVP in Port-a-cath bm8 bm8 06:14 06:14 fentaNYL (PF) IVP 25 mcg IVP in right antecubital bm8 bm8
[2024-09-02] MEDS ORDERED: ALBUMIN HUMAN 25% 100 ML IV ONE (03:58)
[2024-09-02] MEDS ORDERED: NA CHLORIDE 0.9% 100 ML ONE (03:58)
[2024-09-02] MEDS ORDERED: CEFAZOLIN SODIUM 2 GM/VIAL ONE (03:58)
[2024-09-02 04:05] LABS: Absolute Basophils 0.1 K/uL (0-0.5); Absolute Eosinophils 0.2 K/uL (0-0.5); Absolute Lymphocytes (CBC) 2.6 K/uL (0.7-4.9); Absolute Monocytes 1.1 K/uL (0.1-1.3); Absolute Neutrophil 11.9 K/uL (1.8-8.0); Basophils % 0.4 % (0-1.3); Hematocrit 25.1 % (39.6-49.0); Hemoglobin 8.3 g/dL (13.6-17.9); Lymphocytes % 16.4 % (15.3-44.8); MCH 29.8 pg (27.0-35.0); MCHC 32.9 g/dL (32.0-36.0); MCV 90.6 fL (80-100); MPV 8.4 fL (7.6-11.3); Monocytes % 7.2 % (3.3-12.3); Platelets 310 thou/uL (152-406); RBC Red Blood Cell Count 2.77 M/uL (4.33-5.43); Red Cell Distribution Width 16.8 % (12.1-15.2)
[2024-09-02 04:07] LABS: PT Prothrombin Time 15.2 SECONDS (10.0-13.0); Protime INR 1.35
[2024-09-02 04:18] LABS: Albumin 2.1 g/dL (3.4-5.0); Albumin/Globulin Ratio 0.5 (1.1-1.8); Anion Gap 9.7 mEq/L (5.0-15.0); Bilirubin Total 0.5 mg/dL (0.2-1.0); Globulin 3.9 g/dL (2.3-3.5); Potassium 3.7 mEq/L (3.5-5.1)
[2024-09-02] MEDS ORDERED: MIDAZOLAM HCL IN 0.9 % NACL/PF 100 MG/100 ML BAG IVPB ONE (04:26)
[2024-09-02] MEDS ORDERED: NA CHLORIDE 0.9% 250 ML ONE (04:49)
[2024-09-02 06:43] VITALS: TEMP 97.1
--- NOTE | 2024-09-02 06:48 | RAD REPORT ---
EXAM: XR CHEST 1 VIEW HISTORY: 64 years Male S/P INTUBATION COMPARISON: None. FINDINGS: LUNGS/PLEURA: Low lung volumes. Mild right basilar opacities.. CARDIAC/MEDIASTINUM: Enlarged which may be magnified by portable technique. UPPER ABDOMEN: No significant abnormality. BONES: No acute abnormality. LINES/TUBES/OTHER: Peter cath. Endotracheal tube at the aortic arch. IMPRESSION: Endotracheal tube at the aortic arch in satisfactory position. Opacities in the medial right lung base could reflect atelectasis or aspiration. Electronically signed by: Alex Skinner MD 09/02/2024 06:35 AM [facility] Due to temporary technical issues with the PACS/[employer] reporting system, reports are being mau d by the in-house radiologist without review as a courtesy to ensure prompt reporting the interpreting radiologist is fully responsible for the content of the report. Transcribed Date/Time: 09/02/2024 6:47 AM
[2024-09-02 06:59] VITALS: BP 130/71; O2SAT 98
[2024-09-02] MEDS ORDERED: ROCURONIUM 50 MG/5 ML VIAL IV ONE (11:24)
== END 2024-09-02 06:29 ==
LOC: ER 02:58
PROC: 30233N1 Transfusion of Nonautologous Red Blood Cells into Peripheral Vein, Percutaneous Approach (ICD-10-PCS; principal; 2024-09-02)
DX: T81.31XA Disruption of external operation (surgical) wound, not elsewhere classified, initial encounter (principal); L76.22 Postprocedural hemorrhage of skin and subcutaneous tissue following other procedure; T82.838A Hemorrhage due to vascular prosthetic devices, implants and grafts, initial encounter; Z85.828 Personal history of other malignant neoplasm of skin; Z79.01 Long term (current) use of anticoagulants
CPT/HCPCS: 85025; 36415; 86900; 86850; 85610; 86901; 86920 ×2; 80053; 71045; 94002; 36556; 12042; 36430; J2250; P9016 ×2; P9047; J7050

== ENCOUNTER 2024-09-13 03:51 | Emergency (ER) | payer BC ==
[2024-09-13] MEDS ORDERED: NA CHLORIDE 0.9% 50 ML ONE ×3 (03:59→06:04)
[2024-09-13] MEDS ORDERED: TRANEXAMIC ACID 1,000 MG/10 ML VIAL IV ONE ×2 (03:59→05:17)
[2024-09-13] MEDS ORDERED: NA CHLORIDE 0.9% 500 ML ONE ×2 (04:04→05:50)
--- NOTE | 2024-09-13 04:05 | EDPHYS ---
Physician Documentation [facility] Name: Sixto Marie Age: 64 yrs Sex: Male : 1960 Arrival Date: 09/13/2024 Time: 03:51 Bed 4 Private MD: ED Physician Jose Camarena HPI: 09/13 04:20 This 64 yrs old Male presents to ER via Unassigned with complaints of ec2 hemorrhage. 04:20 Patient arrives today with active bleeding from his SNEHAL drain site. Patient with recent ec2 cancer and skin graft with SNEHAL drain in place, recently was seen here for expanding hematoma and significant bleeding, arrives today with recurrence of bleeding and hypotension per EMS. Patient is a full code. Historical: - Allergies: 04:27 Diltiazem; bm8 - Home Meds: 04:27 Unable to obtain [Active]; bm8 - PMHx: 04:27 skin cancer; bm8 - PSHx: 04:27 skin graft; skin tumors removed; bm8 - Immunization history:: Adult Immunizations up to date. - Infectious Disease History:: Denies. - Social history:: Smoking status: Patient denies any tobacco usage or history of. ROS: 04:20 Constitutional: as per hpi ec2 Exam: 04:20 Constitutional: GEN: NAD Head: atraumatic Eyes: EOMI Ears: External ears are ec2 normal. CV: Tachycardia LUNGS: no respiratory distress ABD: non-distended SKIN: Pale individual was cool to touch, SNEHAL drain in the anterior neck noted active bleeding around the SNEHAL drain site, noncompressible, brisk MSK: no evidence of trauma Vital Signs: 03:51 BP 67 / 41; Pulse 101; Resp 16; Temp 97.6(A); Pulse Ox 100% on 2 lpm NC; Weight 90.72 bm8 kg; Height 5 ft. 9 in. ; Pain 0/10; 04:18 BP 63 / 44; Pulse 97; Resp 21; Temp 97.6; Pulse Ox 100% on 2 lpm NC; Pain 0/10; bm8 04:50 BP 80 / 60; Pulse 84; Resp 13; Temp 97.6; Pulse Ox 100% ; Pain 0/10; bm8 05:05 BP 83 / 61; ec2 05:10 BP 77 / 64; Pulse 94; Resp 20; Pulse Ox 100% on 3 lpm NC; bm8 05:51 BP 113 / 77; Pulse 88; Resp 16; Pulse Ox 100% on 2 lpm NC; dd2 06:11 BP 92 / 69; Pulse 120; Resp 14; Pulse Ox 100% on BVM; dd2 06:39 BP 130 / 85; Pulse 137; Resp 14; Pulse Ox 100% on ETT vent; FiO2 100 %; dd2 03:51 Body Mass Index 29.53 (90.72 kg, 175.26 cm) bm8 03:51 Pain Scale: Adult bm8 04:18 Pain Scale: Adult bm8 04:50 Pain Scale: Adult bm8 Mellette Coma Score: 04:18 Eye Response: to voice(3). Motor Response: obeys commands(6). Verbal Response: bm8 oriented(5). Total: 14. 04:50 Eye Response: spontaneous(4). Motor Response: obeys commands(6). Verbal Response: bm8 oriented(5). Total: 15. Ventilator: 05:59 Fi02: 100%; Rate: 14min; Peep: 5cm; ET tube: 7.0 fr; dd2 Procedures: 06:16 Intubation: Ventilated with 100% NRB prior to procedure. O2 saturation prior to ec2 procedure was 95 %. Intubated orally using # 3 Anel blade with 7.0 mm ETT. was successful on first attempt. Ventilated with Ambu bag. ventilator. Tube secured with ETT lozano Placement verified by CO2 detector with (+) color change, auscultating bilateral breath sounds, O2 saturation after procedure was 100 %. Patient tolerated well. MDM: 04:01 Medical Screening Exam initiated ec2 04:20 Data reviewed: vital signs, nurses notes. ED course: Patient arrives today for ec2 evaluation of bleeding from his recent operative site. Patient is critically ill with hypotension, concern is for hemorrhagic shock secondary to postoperative bleeding. I ordered emergency transfusion, will also give 2 units of blood along with FFP. Give the patient TXA as well. Will attempt emergent transfer to [facility] for further management of his hemorrhage, postoperative complications.. 04:22 ED course: Patient is a full code.. ec2 05:16 ED course: I discussed case with a emergency physician at [facility] who agrees with ec2 the patient for transfer. I discussed again with blood bank and will get additional blood products as well.. 06:31 ED course: Patient received multiple units of blood, FFP, see nursing log. I gave the ec2 patient TXA. Patient with significant bleeding. Ultimately were able to get some improvement and slow down and bleeding however not cessation. We attempted direct pressure as well as Surgicel. We have stabilized patient with the best of our capabilities, patient has marked improvement in his blood pressure, I intubated the patient given concern for expanding hematoma and concern for possible airway compromise. I discussed the case with MD Perez who agrees accept the patient for transfer. Patient will be transferred out via [facility]. Family updated regarding guarded prognosis.. 07:06 ED course: Were able to apply direct pressure to the postoperative surgical site which ec2 appeared to have dehisced was significant bleeding, did have improvement in sensation and bleeding, applied a c-collar to hold additional pressure as well. Patient with improvement in blood pressure, remained tachycardic, patient was critical however appropriate for transfer.. 09/13 04:02 Order name: CBC with Diff; Complete Time: 05:03 ec2 09/13 04:02 Order name: CMP; Complete Time: 05:16 ec2 09/13 04:02 Order name: Type And Screen ec2 09/13 04:02 Order name: PT-INR; Complete Time: 05:09 ec2 09/13 04:02 Order name: Ptt, Activated; Complete Time: 05:09 ec2 09/13 04:29 Order name: Packed RBC Leukored [facility] 09/13 04:57 Order name: Fresh Frozen Plasma [facility] 09/13 05:24 Order name: Cryoprecipitate [facility] 09/13 04:02 Order name: IV; Complete Time: 04:38 ec2 09/13 04:02 Order name: Consent for Blood Transfusion; Complete Time: 04:38 ec2 09/13 05:07 Order name: Misc. Order: 1g txa bolus; Complete Time: 05:29 ec2 Administered Medications: 05:07 CANCELLED (Physician Discretion): txa 10 mg IV at 10 bolus bolus ec2 05:29 Drug: txa 1 grams IV at bolus bolus Route: IV; Rate: bolus; Site: right forearm; bm8 05:29 Follow up: Response: No adverse reaction; IV Status: Completed infusion bm8 Disposition Summary: 09/13/24 04:04 Transfer Ordered Notes: Transfer Location: Other Acute Care Facility ec2 Reason: Higher level of care ec2 Condition: Serious ec2 Problem: an acute exacerbation ec2 Symptoms: are unchanged ec2 Accepting Physician: transferring doc(09/13/24 07:01) dd2 Diagnosis - Hemorrhagic Shock, Hypotensive, Requiring blood, bleeding from SNEHAL drain in anterior ec2 neck Forms: - Medication Reconciliation Form ec2 - SBAR form ec2 Critical care time excluding procedures: 06:31 Critical care time: Bedside Care: 65 minutes, Consultation: 15 minutes. Total time: 80 ec2 minutes Signatures: Dispatcher [employer] EDMS Jose Camarena MD MD ec2 Tab Perez RN RN bm8 BLAISE MORA RN RN dd2 Corrections: (The following items were deleted from the chart) 04:58 04:19 FRESH FROZEN PLASMA+BB.LAB.BRZ ordered. EDMS EDMS 04:58 04:21 ABO/RH typing ordered. EDMS EDMS 05:07 04:06 txa 10 mg IV at 10 bolus bolus ordered. ec2 ec2 05:07 04:38 txa 10 mg IV at 10 bolus bolus given. bm8 ec2 05:07 05:07 txa 10 mg IV at 10 bolus bolus ordered. ec2 ec2 07:01 04:04 transferring doc ec2 dd2
[2024-09-13] MEDS ORDERED: SILVER NITRATE 1 APPL TOP ONE ×2 (04:11→04:12)
[2024-09-13 04:34] LABS: Absolute Basophils 0.1 K/uL (0-0.5); Absolute Eosinophils 0.2 K/uL (0-0.5); Absolute Lymphocytes (CBC) 4.2 K/uL (0.7-4.9); Absolute Monocytes 0.6 K/uL (0.1-1.3); Absolute Neutrophil 4.9 K/uL (1.8-8.0); Basophils % 1.3 % (0-1.3); Eosinophils % 1.8 % (0-4.4); Hematocrit 23.9 % (39.6-49.0); Hemoglobin 7.8 g/dL (13.6-17.9); Lymphocytes % 42.1 % (15.3-44.8); MCHC 32.6 g/dL (32.0-36.0); MCV 95.2 fL (80-100); MPV 8.4 fL (7.6-11.3); Monocytes % 5.5 % (3.3-12.3); Neutrophils % 49.3 % (41.7-73.7); Nucleated Red Blood Cells % 0.1 % (0-0); Platelets 394 thou/uL (152-406); RBC Red Blood Cell Count 2.51 M/uL (4.33-5.43); Red Cell Distribution Width 17.1 % (12.1-15.2)
[2024-09-13 05:08] LABS: PT Prothrombin Time 25.9 SECONDS (10-13.0); Protime INR 2.37
[2024-09-13 05:15] LABS: Albumin/Globulin Ratio 0.6 (1.1-1.8); Anion Gap 15.5 mEq/L (5.0-15.0); Bilirubin Total 0.3 mg/dL (0.2-1.0); Globulin 3.2 g/dL (2.3-3.5); Potassium 3.5 mEq/L (3.5-5.1); Protein, Total 5.2 g/dL (6.4-8.2)
[2024-09-13] MEDS ORDERED: ETOMIDATE 20 MG/10 ML VIAL IV ONE (05:42)
[2024-09-13] MEDS ORDERED: ROCURONIUM 50 MG/5 ML VIAL IV ONE (05:43)
[2024-09-13] MEDS ORDERED: NA CHLORIDE 0.9% 250 ML ONE (05:43)
[2024-09-13] MEDS ORDERED: EPINEPHrine 1 MG/10 ML SYR ONE (05:46)
[2024-09-13] MEDS ORDERED: FENTANYL CITR 100 MCG/2 ML ONE (06:04)
--- NOTE | 2024-09-13 07:01 | ER ---
Nurse's Notes [facility] Name: Sixto Marie Age: 64 yrs Sex: Male : 1960 Arrival Date: 09/13/2024 Time: 03:51 Bed 4 Private MD: Diagnosis: Hemorrhagic Shock, Hypotensive, Requiring blood, bleeding from SNEHAL drain in anterior neck Presentation: 03 03:51 Chief complaint: EMS states: MD Perez pt brought into tonight for loss of blood, bm8 stitches to face seem, to have busted and he is bleeding profusely. 03:51 Coronavirus screen: Vaccine status: At this time, the client does not indicate any bm8 symptoms associated with coronavirus-19. Ebola Screen: Patient negative for fever greater than or equal to 101.5 degrees Fahrenheit, and additional compatible Ebola Virus Disease symptoms Patient denies exposure to infectious person. Patient denies travel to an Ebola-affected area in the 21 days before illness onset. No symptoms or risks identified at this time. Initial Sepsis Screen: Does the patient meet any 2 criteria? Mean Arterial Pressure (MAP) < 65. HR > 90 bpm. Does the patient have a suspected source of infection? No. Patient's initial sepsis screen is negative. Risk Assessment: Do you want to hurt yourself or someone else? Patient reports no desire to harm self or others. Onset of symptoms was September 13, 2024 at 03:00. 03:51 Method Of Arrival: EMS: [facility] bm8 03:51 Acuity: JAYSON 1 bm8 Triage Assessment: 03:51 General: Appears uncomfortable, slender, Behavior is cooperative. Pain: Denies pain. bm8 EENT: No deficits noted. No signs and/or symptoms were reported regarding the EENT system. Neuro: No deficits noted. Level of Consciousness is awake, alert, obeys commands, Oriented to person, place, time, situation, Appropriate for age. Cardiovascular: Reports Heart tones S1 S2 present Capillary refill is > 3 seconds is sluggish in bilateral fingers toes Pulses are 1+ in right posterior tibial artery, right dorsalis pedis artery, left posterior tibial artery and left dorsalis pedis artery Rhythm is atrial fibrillation. Respiratory: Airway is patent Respiratory effort is even, unlabored, Respiratory pattern is regular, symmetrical, Breath sounds are clear bilaterally. GI: No signs and/or symptoms were reported involving the gastrointestinal system. : No signs and/or symptoms were reported regarding the genitourinary system. Derm: Skin compromised due to recent surgical procedure. Skin is clammy, diaphoretic, Skin is pale, Skin temperature is cool. Musculoskeletal: No signs and/or symptoms reported regarding the musculoskeletal system. Historical: - Allergies: 04:27 Diltiazem; bm8 - Home Meds: :27 Unable to obtain [Active]; bm8 - PMHx: 04:27 skin cancer; bm8 - PSHx: 04:27 skin graft; skin tumors removed; bm8 - Immunization history:: Adult Immunizations up to date. - Infectious Disease History:: Denies. - Social history:: Smoking status: Patient denies any tobacco usage or history of. Screenin:18 [facility] ED Fall Risk Assessment (Adult) History of falling in the last 3 months, bm8 including since admission No falls in past 3 months (0 pts) Confusion or Disorientation No (0 pts) Intoxicated or Sedated No (0 pts) Impaired Gait Yes (1 pt) Mobility Assist Device Used Yes (1 pt) Altered Elimination No (0 pt) Score/Fall Risk Level 0 - 2 = Low Risk Oriented to surroundings, Maintained a safe environment, Educated pt \T\ family on fall prevention, incl call for assistance when getting out of bed, Assessed \T\ reinforced patient's understanding of fall precautions, Hourly rounding (assess needs \T\ fall precautionary measures) done, Used ambulatory aids as needed (educated on \T\ assisted with), Used gait belt as appropriate. Abuse screen: Denies threats or abuse. Nutritional screening: No deficits noted. Tuberculosis screening: No symptoms or risk factors identified. Assessment: 04:18 Reassessment: 1st unit of emergent blood started at 0418. bm8 04:50 Reassessment: 2nd unit of blood strarted. General: Appears in no apparent distress. bm8 comfortable, Behavior is calm, cooperative, appropriate for age. Pain: Denies pain. Neuro: No deficits noted. Level of Consciousness is awake, alert, obeys commands, Oriented to person, place, time, situation, Appropriate for age. Cardiovascular: Capillary refill is > 3 seconds is sluggish in bilateral fingers toes Patient's skin is warm and dry. Rhythm is atrial fibrillation. Respiratory: Airway is patent Trachea midline Respiratory effort is even, unlabored, Respiratory pattern is regular, symmetrical. 05:12 Reassessment: 2nd unit of emergent blood completed. dd2 05:16 Reassessment: 2nd unit of blood complete. bm8 05:32 Reassessment: 1ST UNIT OF EMERGENT FFP INFUSING AT THIS TIME. 0532. dd2 05:46 Reassessment: 1ST UNIT OF FFP COMPLETE, 2ND STARTED. dd2 05:51 Reassessment: 2nd unit of emergent FFP completed. dd2 06:00 Reassessment: 3RD UNIT OF EMERGENT BLOOD STARTED. dd2 06:02 Reassessment: SOFT COLLAR WITH ABD PACKING PLACED TO LEFT NECK/FACIAL GRAFT FOR dd2 BLEEDING CONTROL. 06:20 Reassessment: [facility] RNS ARRIVED AND AND PRESENT IN ROOM. dd2 06:25 Reassessment: 3RD UNIT OF EMERGENT BLOOD COMPLETED. dd2 06:39 Reassessment: [facility] PRESENT IN ROOM WITH PT. PT PLACED ON LIFE ANASTACIA MONITOR. dd2 Vital Signs: 03:51 BP 67 / 41; Pulse 101; Resp 16; Temp 97.6(A); Pulse Ox 100% on 2 lpm NC; Weight 90.72 bm8 kg; Height 5 ft. 9 in. ; Pain 0/10; 04:18 BP 63 / 44; Pulse 97; Resp 21; Temp 97.6; Pulse Ox 100% on 2 lpm NC; Pain 0/10; bm8 04:50 BP 80 / 60; Pulse 84; Resp 13; Temp 97.6; Pulse Ox 100% ; Pain 0/10; bm8 05:05 BP 83 / 61; ec2 05:10 BP 77 / 64; Pulse 94; Resp 20; Pulse Ox 100% on 3 lpm NC; bm8 05:51 BP 113 / 77; Pulse 88; Resp 16; Pulse Ox 100% on 2 lpm NC; dd2 06:11 BP 92 / 69; Pulse 120; Resp 14; Pulse Ox 100% on BVM; dd2 06:39 BP 130 / 85; Pulse 137; Resp 14; Pulse Ox 100% on ETT vent; FiO2 100 %; dd2 03:51 Body Mass Index 29.53 (90.72 kg, 175.26 cm) bm8 03:51 Pain Scale: Adult bm8 04:18 Pain Scale: Adult bm8 04:50 Pain Scale: Adult bm8 Linwood Coma Score: 04:18 Eye Response: to voice(3). Motor Response: obeys commands(6). Verbal Response: bm8 oriented(5). Total: 14. 04:50 Eye Response: spontaneous(4). Motor Response: obeys commands(6). Verbal Response: bm8 oriented(5). Total: 15. ED Course: 03:51 Arm band placed on right wrist. bm8 03:57 Patient arrived in ED. vk 04:01 Jose Camarena MD is Attending Physician. ec2 04:16 initiated transfer with MD Perez spoke with Jam. vk 04:18 Patient has correct armband on for positive identification. Placed in gown. Bed in low bm8 position. Call light in reach. Side rails up X2. Adult w/ patient. Provided Education on: need for transfer. Client placed on continuous cardiac and pulse oximetry monitoring. NIBP monitoring applied. drop clipper on. Pulse ox on. NIBP on. Door closed. Noise minimized. Warm blanket given. Pillow given. Verbal reassurance given. Head of bed elevated. Consent for blood and/or blood product transfusion explained by staff, explained by physician, verbal consent given by patient and witnessed by charge nurse, Anita Veliz and Provider Dr. Naqvi.. 04:18 No provider procedures requiring assistance completed. Assisted provider with: wound bm8 repair of surgical site. Initial lab(s) drawn, by me, sent to lab. T\T\S collected, blood band applied to patient. Inserted saline lock: 20 gauge in right forearm, using aseptic technique. Blood collected. Flushed with 10 mL NS Maintain EMS IV. maintain EMS IO in Right humeral head.. Oxygen administration via nasal cannula \T\ 2L/min Response to oxygen therapy: symptoms improved. 04:27 Triage completed. bm8 04:38 Spoke with Jam from transfer center stated it would be 10- 15 mins for Doc to Doc vk due to facility worried patient would not be stable enough for transport. 04:42 initiated transfer with Karissa Ellington. vk 05:31 BLAISE MORA, RN is Primary Nurse. dd2 05:54 Assisted provider with intubation using 7.0 mm ETT via oral route. ET tube secured at dd2 23cm at the teeth. Set up intubation tray. Intubated by Jose Camarena MD Placement verified by CO2 detector w/ + color change, auscultating bilateral breath sounds, End-tidal CO2 montioring Patient tolerated well. 05:55 Patient was accepted to [facility] ER to \T\0510 per transfer center vk coordinator Jam, Admin approval \T\0510 is Jam Faria / initiated transport with [facility] spoke with Christen patient was accepted. 05:59 Assist ventilation. dd2 07:00 Patient transferred, IV remains in place. dd2 Administered Medications: 05:07 CANCELLED (Physician Discretion): txa 10 mg IV at 10 bolus bolus ec2 05:29 Drug: txa 1 grams IV at bolus bolus Route: IV; Rate: bolus; Site: right forearm; bm8 05:29 Follow up: Response: No adverse reaction; IV Status: Completed infusion bm8 Medication: 04:18 VIS not applicable for this client. bm8 Ventilator: 05:59 Fi02: 100%; Rate: 14min; Peep: 5cm; ET tube: 7.0 fr; dd2 Outcome: 04:04 ER care complete, transfer ordered by . ec2 07:00 Transferred by helicopter to [facility], Transfer form completed. dd2 07:00 critical 07:00 Instructed on the need for transfer, Demonstrated understanding of instructions, 07:01 Patient left the ED. dd2 Signatures: Jose Camarena MD MD ec2 Melinda Isaac Brad, RN RN bm8 BLAISE MORA RN RN dd2 Corrections: (The following items were deleted from the chart) 05:07 04:07 txa 10 mg IV at 10 bolus in right forearm bm8 ec2 05:07 04:52 Response: No adverse reaction; IV Status: Completed infusion bm8 ec2 06:49 06:39 Reassessment: [facility] PRESENT IN ROOM WITH PT. PT ON LIFE ANASTACIA MONITOR. dd2 dd2
[2024-09-13 07:56] VITALS: TEMP 97.6; O2SAT 100
[2024-09-13 08:04] VITALS: BP 130/85
== END 2024-09-13 07:01 ==
LOC: ER 03:51
PROC: 30233N1 Transfusion of Nonautologous Red Blood Cells into Peripheral Vein, Percutaneous Approach (ICD-10-PCS; principal; 2024-09-13)
DX: R57.8 Other shock (principal); I95.9 Hypotension, unspecified; T82.838A Hemorrhage due to vascular prosthetic devices, implants and grafts, initial encounter; Z85.828 Personal history of other malignant neoplasm of skin
CPT/HCPCS: 85025; 36415; 86900; 86850; 85610; 86901; 85730; 86920 ×4; 80053; 31500; 99285; 94002; 36430; J3010; P9016 ×4; P9059 ×2; J7050 ×3; J0171